=== PATIENT | female | born 1960 ===

== ENCOUNTER 2020-03-08 09:28 | Outpatient (REF) | payer OTHER, SELFPAY ==
[2020-03-08 11:45] LABS: Hematocrit 42.7 % (37-47); Hemoglobin 13.6 g/dl (12.0-16.0); Mean Corpuscular HGB Conc 31.9 g/dl (31.0-35.0); Mean Corpuscular Hemoglobin 29.8 pg (27.0-33.0); Mean Corpuscular Volume 93.6 fL (80-98); Mean Platelet Volume 10.4 fL (9.4-12.3); Platelet Count 524 X10*3/uL (160-400); Red Blood Count 4.56 X10*6/uL (4.20-5.50); Red Cell Distribution Width 13.6 % (11.0-16.0); White Blood Count 10.7 X10*3/uL (4.8-10.8)
[2020-03-08 11:55] LABS: Alanine Aminotransferase 34 U/L (0-31); Albumin Level 4.3 g/dL (3.5-5.0); Alkaline Phosphatase 108 U/L (39-117); Anion Gap 13 (12-20); Aspartate Amino Transferase 23 U/L (5-31); Bilirubin Total 0.5 mg/dL (0.0-1.0); Blood Urea Nitrogen 15 mg/dL (9-16); Calcium 9.1 mg/dL (8.4-10.2); Carbon Dioxide 24 mmol/L (22-29); Chloride 106 mmol/L (96-108); Cholesterol 276 mg/dL; Estimated Glomerular Filt Rate > 60; Glucose Fasting 91 mg/dL (60-99); HDL Cholesterol 46 mg/dL; LDL Cholesterol Calculated 184 mg/dl; Potassium 4.8 mmol/l (3.3-5.1); Sodium 138 mmol/L (135-145); Total Protein 7.1 g/dL (6.5-8.0); Triglycerides 233 mg/dL
[2020-03-08 12:19] LABS: Thyroid Stimulating Hormone 1.01 mIU/mL (0.32-4.0); Vitamin D 25-OH Total 21.6 ng/mL (>30)
[2020-03-08 13:02] LABS: Atypical Lymph Absolute Manual 0.2 x10*3/uL; Atypical Lymphs Percent Manual 2 % (0-6); Basophils Abs Manual 0.1 X10*3/uL (0.0-0.3); Basophils Percent Manual 1 % (0-1); Eosinophils Absolute Manual 0.1 X10*3/UL (0.0-0.8); Eosinophils Percent Manual 1 % (0-4); Lymphocytes Absolute Manual 6.2 X10*3/uL (0.6-4.8); Lymphocytes Percent Manual 58 % (20-40); Monocytes Absolute Manual 0.5 X10*3/uL (0.0-1.2); Monocytes Percent Manual 5 % (2-11); Neutrophils Percent Manual 33 % (45-73)
[2020-03-08 13:03] LABS: Platelet Estimate INCREASED (NORMAL); Platelet Morphology Comment NORMAL; RBC Morphology NORMAL; Smudge Cells PRESENT
[2020-03-08 15:02] LABS: Band Neutrophils Percent 0 % (3-5); Neutrophils Absolute Manual 3.5 X10*3/uL (2.2-7.9)
== END 2020-03-08 09:29 | disposition home or self-care (01) ==
LOC: HO.HMGCLDS 09:28
PROVIDERS: PCP Internal Medicine; Visit Provider Internal Medicine
DX: Z00.01 Encounter for general adult medical examination with abnormal findings (principal); E78.5 Hyperlipidemia, unspecified; N95.1 Menopausal and female climacteric states; E03.9 Hypothyroidism, unspecified; Z86.2 Personal history of diseases of the blood and blood-forming organs and certain disorders involving the immune mechanism
CPT/HCPCS: 36415; 80050; 80053; 80061; 82306; 84443; 85007; 85025; 85027

== ENCOUNTER 2022-07-17 08:46 | Outpatient (REF) | payer OTHER, SELFPAY ==
[2022-07-17 12:02] LABS: Basophils Absolute Auto 0.1 X10*3/uL (0.0-0.2); Basophils Percent Auto 0.9 % (0-2); Eosinophils Absolute Auto 0.3 X10*3/uL (0.0-0.4); Eosinophils Percent Auto 3.3 % (0-4); Hematocrit 44.8 % (37.0-47.0); Hemoglobin 14.1 g/dl (12.0-16.0); Imm Gran Abs Auto 0.02 X10*3/uL (0.00-0.03); Imm Gran Pct Auto 0.2 % (0.0-0.4); Lymphocytes Absolute Auto 5.6 X10*3/uL (1.2-4.9); Lymphocytes Percent Auto 53.9 % (20-40); MANUAL DIFF FLAG SCAN; Mean Corpuscular HGB Conc 31.5 g/dl (31.0-35.0); Mean Corpuscular Hemoglobin 29.4 pg (27.0-33.0); Mean Corpuscular Volume 93.3 fL (80.0-98.0); Mean Platelet Volume 10.2 fL (9.4-12.3); Monocytes Absolute Auto 0.6 X10*3/uL (0.1-1.2); Monocytes Percent Auto 5.4 % (2-11); Neutrophils Absolute Auto 3.8 x10*3/uL (2.0-8.3); Neutrophils Percent Auto 36.3 % (45-73); Platelet Count 528 X10*3/uL (160-400); Red Cell Distribution Width 13.6 % (11.0-16.0); SCAN SMEAR FLAG 1; White Blood Count 10.3 X10*3/uL (4.8-10.8)
[2022-07-17 12:32] LABS: SLIDE REVIEW VERIFIED
[2022-07-17 12:42] LABS: Alanine Aminotransferase 22 U/L (0-31); Anion Gap 13 (12-20); Aspartate Amino Transferase 23 U/L (5-31); Blood Urea Nitrogen 12 mg/dL (9-16); Calcium 9.7 mg/dL (8.4-10.2); Carbon Dioxide 26 mmol/L (22-29); Chloride 109 mmol/L (96-108); Cholesterol 287 mg/dL; Estimated Glomerular Filt Rate > 60; Glucose Fasting 91 mg/dL (60-99); HDL Cholesterol 51 mg/dL; LDL Cholesterol Calculated 191 mg/dl; Sodium 143 mmol/L (135-145); Triglycerides 227 mg/dL
[2022-07-17 12:53] LABS: Folate 12.5 ng/mL (> or = 4.0); Vitamin B12 593 pg/mL (200-900); Vitamin D 25-OH Total 28.6 ng/mL (>30)
== END 2022-07-17 08:47 | disposition home or self-care (01) ==
LOC: HO.HMGCLDS 08:46
PROVIDERS: PCP Internal Medicine; Visit Provider Internal Medicine
DX: Z00.01 Encounter for general adult medical examination with abnormal findings (principal); E55.9 Vitamin D deficiency, unspecified; E78.5 Hyperlipidemia, unspecified; Z78.0 Asymptomatic menopausal state; Z90.81 Acquired absence of spleen
CPT/HCPCS: 36415; 80048; 80061; 82306; 82607; 82746; 84450; 84460; 85025

== ENCOUNTER 2023-06-29 10:40 | Outpatient (AMB) | payer OTHER, SELFPAY ==
[2023-06-29 11:09] VITALS: BP 144/86; PULSE 90; O2SAT 96; BMI 31.6
--- NOTE | 2023-06-29 11:09 | A.OFFPC_ITS ---
Vital Signs 06/29/23 11:09 Height 5 ft 1 in Weight 167 lb BMI 31.6 BP 144/86 H Blood Pressure Location Rt brachial Position Sitting Pulse 90 Pulse Source Pulse Oximeter Pulse Oximetry (%) 96 Oxygen Delivery Method Room Air Intake Visit Reasons: Discuss Orthopedic Referral Intake Note: Pt is here today to discuss orthopedic referral for Lt knee pain: No injury noted Allergies No Known Allergies Allergy (Verified 06/29/23 11:23) Tobacco use date assessed: 06/29/23 Dental Screening Dental Screen Date: 06/29/23 Did you have a dental visit in the last 12 months?: Yes Did you have a dental problem in the last 6 months where you did not have access to dental care?: No Was dental information given to patient?: Patient has dentist HPI Discuss Orthopedic Referral HPI Details 63-year-old lady here today complaining of sudden onset of pain in anterior aspect of left knee joint, she was seen at urgent care clinic 06/10/2023 were x-ray of knee done showed presence of small left joint effusion fracture seen. Patient placed on 5 day course of prednisone 10 mg daily which she states only afforded temporary relief. She has been wearing a flexible knee brace which affords some improvement. Patient requesting a referral to be seen at [facility]. Patient states she already scheduled appointment for 07/12/2023 [facility] Medical History (Updated 06/29/23 @ 11:48 by Alyssa Sullivan MD) Mixed dyslipidemia Refused pneumococcal vaccination COVID-19 vaccination refused Vitamin D deficiency Refused influenza vaccine Nail deformity Hot flashes due to menopause Postmenopause Hx of idiopathic thrombocytopenic purpura Cyst of right breast with history of ectopic Normal colonoscopy Surgical History H/O splenectomy History of unilateral fallopian tube excision Family History Mother No problems noted. Brother Hyperlipemia Sister Diabetes Hyperlipemia Social History Housing: House Alcohol intake: never Patient Tobacco Use Status: Never used Tobacco e-Cigarette/Vaping Use: Never Used service: No Current occupational status: employed Cognitive needs: No Hearing needs: No Vision needs: Yes Questionnaire PHQ-9 Over the last 2 weeks, how often have you been bothered by any of the following problems? 1. Little interest or pleasure in doing things: not at all 2. Feeling down, depressed, or hopeless: not at all 3. Trouble falling or staying asleep, or sleeping too much: not at all 4. Feeling tired or having little energy: several days 5. Poor appetite or overeating: several days 6. Feeling bad about yourself - or that you are a failure or have let yourself or your family down: not at all 7. Trouble concentrating on things, such as reading the newspaper or watching television: not at all 8. Moving or speaking so slowly that other people could have noticed. Or the opposite - being so fidgety or restless that you have been moving around a lot more than usual: not at all 9. Thoughts that you would be better off or of hurting yourself in some way: not at all Total score: 2 Depression Screening Interpretation: Negative Depression Screening Done: Yes 22377 - PHQ-9 Billing: Yes Source: Developed by Drs. Blayne Pinto, Tara Mayorga, Tremayne Owen and colleagues, with an educational eleazar from [employer]. Thrive Questionnaire Date Thrive assessed: 06/29/23 I am a: Patient What is your living situation today?: I have a steady place to live Within the past 12 months, did the food you bought not last and you didn't have the money to get more?: Never true Within the past 12 months, did you worry whether your food would run out before you got money to buy more?: Never true Do you have trouble paying for medicines?: No Do you have trouble getting transportation to medical appointments?: No Do you have trouble paying your heating and electricity bill?: No Do you have trouble taking care of your child, family member or friend?: No Do you have trouble with day-to-day activities such as bathing, preparing meals, shopping, managing finances, etc.?: No Are you currently unemployed and looking for a job?: No Are you interested in more education?: No THRIVE Score: 0 AUDIT C Alcohol Use Questionnaire (AUDIT-C) 1. How often do you have a drink containing alcohol?: Monthly or less 2. How many drinks containing alcohol do you have on a typical day when you are drinking?: 1 or 2 3. How often do you have six or more drinks on one occasion?: Never Total Score: 1 MARTY-7 AMB Questionnaire MARTY-7 Date MARTY - 7 assessed: 06/29/23 Feeling nervous, anxious, or on edge: 0 = Not at all Not being able to stop or control worryin = Not at all Worrying too much about different things: 0 = Not at all Trouble relaxin = Not at all Being so restless that it is hard to sit still: 0 = Not at all Becoming easily annoyed or irritable: 0 = Not at all Feeling afraid as if something awful might happen: 0 = Not at all Total MARTY-7 score (0-4 normal; 5-9 mild; 10-14 moderate; 15-21 severe): 0 Source: Developed by Drs. Blayne Pinto, Tara Mayorga, Tremayne Owen and colleagues, with an educational eleazar from [employer]. MARTY-7 Assessment Billing MARTY-7 Assessment Tool: MARTY-7 Assessment 83150 Review of Systems Const All systems reviewed & are unremarkable except as noted in HPI and below Physical exam (Primary Care) Vital Signs: Last Vital Signs Pulse 90 06/29/23 11:09 BP 144/86 H 06/29/23 11:09 Pulse Ox 96 06/29/23 11:09 Oxygen Delivery Method Room Air 06/29/23 11:09 BMI result Body Mass Index 31.6 Tobacco/Smoking Status: Tobacco use Status Tobacco use date assessed 06/29/23 06/29/23 11:27 Patient Tobacco Use Status Never used Tobacco 06/29/23 11:10 e-Cigarette/Vaping Use Never Used 06/29/23 11:10 PHQ-9: PHQ-9 Score PHQ-9: Total score 2 06/29/23 11:53 Depression Screening Interpretation: Negative Thrive Assessment: Date of Thrive Assessment Date Thrive assessed 06/29/23 06/29/23 11:53 Const Other: Alert oriented x3, no acute distress noted ambulatory normal gait Orientation/consciousness: patient oriented x3 Resp Effort & Inspection: normal respiratory effort and able to speak in complete sentences Auscultation: clear to auscultation bilaterally Cardio Rate: regular rate Rhythm: regular rhythm Heart sounds: S1 normal heart sound present and S2 normal heart sound present Skin General skin exam: no rashes or lesions noted Neuro General: patient oriented x3, gait normal, moves all extremities and no focal motor deficits Extrem General: Yes full ROM and Yes no joint enlargement Left lower extremity: normal to inspection, full ROM and no joint enlargement Assessment and Plan Assessment & Plan (1) Left anterior knee pain: Code(s): M25.562 - Pain in left knee Plan: Needs referral to [facility], has appointment already scheduled for to 07/12/23 at 09:15 am (2) Refused pneumococcal vaccination: Code(s): Z28.21 - Immunization not carried out because of patient refusal (3) Mixed dyslipidemia: Code(s): E78.2 - Mixed hyperlipidemia Plan: Refusing to start any statin, reinforced importance of following a low- cholesterol diet and getting regular exercise. Repeat fasting lipid ordered (4) COVID-19 vaccination refused: Code(s): Z28.21 - Immunization not carried out because of patient refusal (5) Vitamin D deficiency: Code(s): E55.9 - Vitamin D deficiency, unspecified Plan: Check vitamin-D level Orders: Orders Vitamin D 25-OH Total 06/29/23 E55.9 - Vitamin D deficiency, unspecified, E78.2 - Mixed hyperlipidemia Alanine Aminotransferase 06/29/23 E55.9 - Vitamin D deficiency, unspecified, E78.2 - Mixed hyperlipidemia Lipid Panel 06/29/23 E55.9 - Vitamin D deficiency, unspecified, E78.2 - Mixed hyperlipidemia Basic Metabolic Panel Fasting 06/29/23 E55.9 - Vitamin D deficiency, unspecified, E78.2 - Mixed hyperlipidemia Aspartate Amino Transferase 06/29/23 E55.9 - Vitamin D deficiency, unspecified, E78.2 - Mixed hyperlipidemia Referrals Orthopedics Referral M25.562 - Pain in left knee Coding Level of Care Code Est Pt Level 3 (54633) Diagnoses Left anterior knee pain M25.562 Refused pneumococcal vaccination Z28.21 Mixed dyslipidemia E78.2 COVID-19 vaccination refused Z28.21 Vitamin D deficiency E55.9 Additional Codes MARTY-7 Assessment Billing - MARTY-7 Assessment Tool: MARTY-7 Assessment 27063 ([id number])
== END 2023-06-29 16:18 | disposition home or self-care (01) ==
PROVIDERS: PCP Internal Medicine; Visit Provider Internal Medicine
DX: M25.562 Pain in left knee (principal); Z28.21 Immunization not carried out because of patient refusal; E78.2 Mixed hyperlipidemia; E55.9 Vitamin D deficiency, unspecified
CPT/HCPCS: 99213

== ENCOUNTER 2023-07-16 06:40 | Outpatient (REF) | payer OTHER, SELFPAY ==
[2023-07-16 11:39] LABS: Alanine Aminotransferase 22 U/L (0-31); Anion Gap 12 (12-20); Aspartate Amino Transferase 22 U/L (5-31); Blood Urea Nitrogen 15 mg/dL (9-16); Calcium 9.1 mg/dL (8.4-10.2); Carbon Dioxide 23 mmol/L (22-29); Chloride 110 mmol/L (96-108); Cholesterol 280 mg/dL (<200); Estimated Glomerular Filt Rate > 60; Glucose Fasting 102 mg/dL (60-99); HDL Cholesterol 51 mg/dL (>40); LDL Cholesterol Calculated 196 mg/dL (<100); Potassium 4.2 mmol/L (3.3-5.1); Sodium 141 mmol/L (135-145); Triglycerides 166 mg/dL (<150)
[2023-07-16 12:01] LABS: Vitamin D 25-OH Total 49.7 ng/mL (>30)
== END 2023-07-16 06:41 | disposition home or self-care (01) ==
LOC: HO.HMGCLDS 06:40
PROVIDERS: PCP Internal Medicine; Visit Provider Internal Medicine
DX: E78.2 Mixed hyperlipidemia (principal); E55.9 Vitamin D deficiency, unspecified
CPT/HCPCS: 36415; 80048; 80061; 82306; 84450; 84460

== ENCOUNTER 2023-08-06 13:28 | Outpatient (AMB) | payer OTHER, SELFPAY ==
[2023-08-06 13:42] VITALS: BP 128/72; PULSE 92; O2SAT 98; BMI 31.3
--- NOTE | 2023-08-06 13:42 | MHC.PC.OV ---
Vital Signs 08/06/23 13:42 Height 5 ft 1 in Weight 165 lb 8 oz BMI 31.3 BP 128/72 Blood Pressure Location Rt brachial Position Sitting Pulse 92 Pulse Source Pulse Oximeter Pulse Oximetry (%) 98 Oxygen Delivery Method Room Air Intake Visit Reasons: Annual PE/OK Per Dr. Stevenson Intake Note: Pt is here today for her Annual Physical. Last Mammogram 09/01/2021 Cologuard done last year. Allergies No Known Allergies Allergy (Verified 08/06/23 13:50) Medication List - Last Reconciled 08/06/23 by Alyssa Sullivan MD cholecalciferol (vitamin D3) 125 mcg PO DAILY magnesium oxide 500 mg PO DAILY vitamin B complex (B Complex-Vitamin B12 tablet) 1 tab PO DAILY zinc acetate (Galzin) 50 mg PO DAILY Tobacco use date assessed: 08/06/23 Dental Screening Dental Screen Date: 08/06/23 Did you have a dental visit in the last 12 months?: Yes Did you have a dental problem in the last 6 months where you did not have access to dental care?: No Was dental information given to patient?: Patient has dentist HPI Annual PE/OK Per Dr. Stevenson HPI Details 63-year-old lady here today for physical exam. She is overdue for her mammogram, last done in 2021, but is up-to-date with her cervical cancer screening, sees Dr. Hicks at [facility]. Patient states that she had done already this year, copy of results unavailable to me at present time. She had her colon cancer screening done by Cologuard testing which came back negative, last year. She has mixed dyslipidemia , which she has been trying to control through diet and exercise. Recent fasting labs done however showed higher LDL cholesterol as well as triglycerides as compared to last check. Previously was on atorvastatin, but had to stop taking the medication as she developed severe muscle pain and weaknes, which resolved after discontinuation of the medication. She has history of ITP status post splenectomy. Patient however does not want to get any vaccinations, as she believes that she developed ITP after being given the wrong vaccine when she was a child peer [facility] Medical History Mixed dyslipidemia Refused pneumococcal vaccination COVID-19 vaccination refused Vitamin D deficiency Refused influenza vaccine Nail deformity Hot flashes due to menopause Postmenopause Hx of idiopathic thrombocytopenic purpura Cyst of right breast with history of ectopic Normal colonoscopy Surgical History H/O splenectomy History of unilateral fallopian tube excision Family History Mother No problems noted. Brother Hyperlipemia Sister Diabetes Hyperlipemia Social History Housing: House Alcohol intake: never Patient Tobacco Use Status: Never used Tobacco e-Cigarette/Vaping Use: Never Used service: No Current occupational status: employed Cognitive needs: No Hearing needs: No Vision needs: Yes Questionnaire PHQ-9 Over the last 2 weeks, how often have you been bothered by any of the following problems? 1. Little interest or pleasure in doing things: not at all 2. Feeling down, depressed, or hopeless: not at all 3. Trouble falling or staying asleep, or sleeping too much: several days 4. Feeling tired or having little energy: several days 5. Poor appetite or overeating: not at all 6. Feeling bad about yourself - or that you are a failure or have let yourself or your family down: not at all 7. Trouble concentrating on things, such as reading the newspaper or watching television: not at all 8. Moving or speaking so slowly that other people could have noticed. Or the opposite - being so fidgety or restless that you have been moving around a lot more than usual: not at all 9. Thoughts that you would be better off or of hurting yourself in some way: not at all Total score: 2 Depression Screening Interpretation: Negative Depression Screening Done: Yes 97748 - PHQ-9 Billing: Yes Source: Developed by Drs. Blayne Pinto, Tara Mayorga, Tremayne Owen and colleagues, with an educational eleazar from [employer]. Thrive Questionnaire Date Thrive assessed: 08/06/23 I am a: Patient What is your living situation today?: I have a steady place to live Within the past 12 months, did the food you bought not last and you didn't have the money to get more?: Sometimes True Within the past 12 months, did you worry whether your food would run out before you got money to buy more?: Sometimes True Do you have trouble paying for medicines?: No Do you have trouble getting transportation to medical appointments?: No Do you have trouble paying your heating and electricity bill?: No Do you have trouble taking care of your child, family member or friend?: No Do you have trouble with day-to-day activities such as bathing, preparing meals, shopping, managing finances, etc.?: No Are you currently unemployed and looking for a job?: No Are you interested in more education?: No Please select the resources that you would like help with: None Currently or been in a relationship where the following occur: no concerns reported THRIVE Score: 2 AUDIT C Alcohol Use Questionnaire (AUDIT-C) 1. How often do you have a drink containing alcohol?: Never 3. How often do you have six or more drinks on one occasion?: Never Total Score: 0 Score Reviewed/Action Taken: Yes MARTY-7 AMB Questionnaire MARTY-7 Date MARTY - 7 assessed: 08/06/23 Feeling nervous, anxious, or on edge: 0 = Not at all Not being able to stop or control worryin = Not at all Worrying too much about different things: 0 = Not at all Trouble relaxin = Not at all Being so restless that it is hard to sit still: 0 = Not at all Becoming easily annoyed or irritable: 0 = Not at all Feeling afraid as if something awful might happen: 0 = Not at all Total MARTY-7 score (0-4 normal; 5-9 mild; 10-14 moderate; 15-21 severe): 0 Source: Developed by Drs. Blayne Pinto, Tara Mayorga, Tremayne Owen and colleagues, with an educational eleazar from [employer]. MARTY-7 Assessment Billing MARTY-7 Assessment Tool: MARTY-7 Assessment 92826 Review of Systems Const Denies fatigue, Denies fever(s), Denies headache(s) and Denies weakness Eyes Details: sees [facility] Denies change in vision and Denies eye discharge ENT Denies dizziness, Denies headache(s), Denies epistaxis, Denies nasal congestion and Denies sore throat Card Denies chest pain, Denies lightheadedness, Denies palpitations and Denies dyspnea Resp Denies chest congestion, Denies cough, Denies dyspnea and Denies wheezing GI Denies abdominal pain, Denies melena, Denies bloating, Denies change in bowel habits, Denies dyspepsia, Denies heartburn and Denies nausea Denies hematuria, Denies urinary frequency, Denies difficulty voiding, Reports hot flashes (occasional), Denies nipple discharge, Denies dysuria and Denies urinary incontinence Musc Reports stiffness Skin/Breast Denies breast swelling, Denies breast pain, Denies breast mass, Denies lesions, Denies nipple discharge and Denies rash Neuro Denies dizziness, Denies headache(s) and Denies weakness Psych Reports no additional complaints Endo Denies fatigue, Denies polydipsia, Denies polyuria and Denies palpitations Keith/Lymph Denies easy bleeding and Denies easy bruising Aller/Immun Denies seasonal rhinorrhea and Denies wheezing Physical exam (Primary Care) Vital Signs: Last Vital Signs Pulse 92 08/06/23 13:42 BP 128/72 08/06/23 13:42 Pulse Ox 98 08/06/23 13:42 Oxygen Delivery Method Room Air 08/06/23 13:42 BMI result Body Mass Index 31.3 Tobacco/Smoking Status: Tobacco use Status Tobacco use date assessed 08/06/23 08/06/23 13:43 Patient Tobacco Use Status Never used Tobacco 08/06/23 13:43 e-Cigarette/Vaping Use Never Used 08/06/23 13:43 PHQ-9: PHQ-9 Score PHQ-9: Total score 2 08/06/23 14:03 Depression Screening Interpretation: Negative Thrive Assessment: Date of Thrive Assessment Date Thrive assessed 08/06/23 08/06/23 13:48 Currently or been in a relationship where the following occur: no concerns reported Const Other: Alert oriented x3, no acute distress noted ambulatory normal gait Orientation/consciousness: patient oriented x3 [facility] Head: Yes normocephalic Ears: external ears normal, TM's normal bilaterally and EAC's normal General nose exam: Normal external nose present and No nasal discharge present Face and sinus: Yes face symmetric Mouth: Normal oral and palatal mucosa present, oropharynx normal and moist mucous membranes Eyes General: appearance normal, both eyes and all related structures Neck Neck: Yes full ROM, Yes no lymphadenopathy and Yes supple Chest Breast/axilla palpation: normal palpation of the breasts Resp Effort & Inspection: normal respiratory effort and able to speak in complete sentences Auscultation: clear to auscultation bilaterally Cardio Rate: regular rate Rhythm: regular rhythm Heart sounds: S1 normal heart sound present and S2 normal heart sound present GI Palpation (GI): Soft to palpation, nontender, no guarding and no masses Auscultation: normal bowel sounds General: Yes no CVA tenderness and Yes deferred (Currently sees Dr. Hicks for her routine Pap and pelvic exam) Back/Spine/Pelvis Back: no CVA tenderness and No back tenderness Skin General skin exam: no rashes or lesions noted Neuro General: patient oriented x3, gait normal, moves all extremities and no focal motor deficits Extrem General: Yes full ROM and Yes no joint enlargement Left lower extremity: normal to inspection, full ROM and no joint enlargement Psych Appearance: grossly normal and well kempt Mental Status: mental status grossly normal Affect: normal affect Attitude: cooperative Thought process: Normal thought process present Results Reviewed Results Reviewed: Name: Francoise Burdick Age/Sex: 63/F : 1960 Unit#: [id number] Attend Dr: Alyssa Sullivan MD Re07/16/23 Status: DEP REF Location: [facility] Disch: SPEC : [id number] ROSA: 07/16/23 STATUS: COMP REQ : [id number] RECD: 07/16/23-[address]: Alyssa Sullivan MD COMP: 07/16/23 ENTERED: 07/16/[address]: ORDERED: Met Prof Fast, AST, ALT, Lipid Panel, Vitamin D 25-OH Test Result Flag Reference Sodium 141 135-145 mmol/L Potassium 4.2 3.3-5.1 mmol/L CL 110 H 96-108 mmol/L CO2 23 22-29 mmol/L Gap 12 12-20 BUN 15 9-16 mg/dL Creat 0.67 0.5-1.4 mg/dL EGFR > 60 NOTE: For -Dominican individuals, multiply the result by 1.210. Chronic Kidney Disease: Estimated GFR < 60 mL/min/1.73m2 Severe Kidney Disease: Estimated GFR < 15 mL/min/1.73m2 FBS 102 H 60-99 mg/dL A fasting glucose from 100-125 mg/dl is considered impaired (pre-diabetes). CA 9.1 # 8.4-10.2 mg/dL AST (GOT) 22 5-31 U/L ALT (GPT) 22 0-31 U/L Triglyceride 166 H <150 mg/dL Desirable Triglyceride: less than 150 mg/dL Borderline High Triglyceride 150-199 mg/dL High Triglyceride: 200-499 mg/dL Very High Triglyceride: greater than or equal to 5OO mg/dL Cholesterol 280 H <200 mg/dL Desirable Cholesterol: less than 200 mg/dL Borderline High Cholesterol: 200-239 mg/dL High Cholesterol: greater than 239 mg/dL LDL Calculated 196 H <100 mg/dL Desirable LDL: less than 100 mg/dL Near Optimal/Above Optimal LDL: 110-129 mg/dL Borderline High LDL: 130-159 mg/dL High LDL: 160-189 mg/dL Very High LDL: greater than or equal to 190 mg/dL HDL 51 >40 mg/dL Desirable HDL: greater than 40 mg/dL Note: This HDL assay may give artificially low results in patients with liver disease. Vit D 25-OH Tot 49.7 >30 ng/mL Health Based Reference Values* < 20 ng/mL Deficient 20-30 ng/mL Insufficient > 30 ng/mL Sufficient Assessment and Plan Assessment & Plan (1) Annual visit for general adult medical examination with abnormal findings: Code(s): Z00.01 - Encounter for general adult medical examination with abnormal findings Plan: Recent fasting lab results reviewed with patient.. Recommended dental visit every 6 months and regular eye exams, at least every 2 years, goes to [facility]. Take adequate calcium in diet and vitamin-D 3 at 2000 IU per cap once a day, in addition to weight-bearing exercises to help maintain good muscle tone and weight control. Instructed to do self-breast exam, and advised to get yearly mammogram, patient advised to request for breast padding if the procedure is too painful for her. . She is up-to-date with her colon cancer screening, had negative Cologuard testing last year, (2) Mixed dyslipidemia: Code(s): E78.2 - Mixed hyperlipidemia Plan: Reviewed recent fasting lab results with patient which showed marked elevation in her LDL cholesterol and high triglycerides. Will start on rosuvastatin 5 mg per tablet to take once a day, and added Co Q10 50 mg /capsule , taken together. Reinforced importance of following a low-cholesterol diet and getting regular exercise. Ordered another lipid panel in 3 months (3) Postmenopause: Code(s): Z78.0 - Asymptomatic menopausal state Plan: Discussed also importance of taking vitamin-D 3 supplements at least 2000 units daily and together with dietary calcium and regular weight-bearing exercise. (4) Refused influenza vaccine: Code(s): Z28.21 - Immunization not carried out because of patient refusal Plan: Declined getting any immunizations (5) 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 in [place] Code(s): Z90.81 - Acquired absence of spleen Plan: Discussed with patient importance of getting vaccinated specially for Streptococcus pneumoniae but patient again declined. (6) COVID-19 vaccination refused: Code(s): Z28.21 - Immunization not carried out because of patient refusal (7) Refused pneumococcal vaccination: Code(s): Z28.21 - Immunization not carried out because of patient refusal Orders: Orders Creatine Kinase Total 3 Months E78.2 - Mixed hyperlipidemia Aspartate Amino Transferase 3 Months E78.2 - Mixed hyperlipidemia Alanine Aminotransferase 3 Months E78.2 - Mixed hyperlipidemia Lipid Panel 3 Months E78.2 - Mixed hyperlipidemia Medications: New rosuvastatin 5 mg PO DAILY 30 tabs 5RF Coding Level of Care Code Est Pt Prev Care 40-64y(81885) Diagnoses Annual visit for general adult medical examination with abnormal findings Z00.01 Mixed dyslipidemia E78.2 Postmenopause Z78.0 Refused influenza vaccine Z28.21 H/O splenectomy Z90.81 COVID-19 vaccination refused Z28.21 Refused pneumococcal vaccination Z28.21 Additional Codes MARTY-7 Assessment Billing - MARTY-7 Assessment Tool: MARTY-7 Assessment [id number] ([id number])
== END 2023-08-06 14:12 | disposition home or self-care (01) ==
LOC: HO.HMGC 13:29
PROVIDERS: PCP Internal Medicine; Visit Provider Internal Medicine
DX: Z00.01 Encounter for general adult medical examination with abnormal findings (principal); E78.2 Mixed hyperlipidemia; Z78.0 Asymptomatic menopausal state; Z28.21 Immunization not carried out because of patient refusal; Z90.81 Acquired absence of spleen
CPT/HCPCS: 99213; 99396

== ENCOUNTER 2023-11-01 07:31 | Outpatient (REF) | payer OTHER, SELFPAY ==
[2023-11-01 10:54] LABS: Alanine Aminotransferase 20 U/L (0-31); Aspartate Amino Transferase 21 U/L (5-31); Cholesterol 195 mg/dL (<200); HDL Cholesterol 49 mg/dL (>40); LDL Cholesterol Calculated 113 mg/dL (<100); Triglycerides 169 mg/dL (<150)
== END 2023-11-01 07:32 | disposition home or self-care (01) ==
LOC: HO.HMGCLDS 07:31
PROVIDERS: PCP Internal Medicine; Visit Provider Internal Medicine
DX: E78.2 Mixed hyperlipidemia (principal)
CPT/HCPCS: 36415; 80061; 82550; 84450; 84460

== ENCOUNTER 2023-11-09 13:05 | Outpatient (AMB) | payer OTHER, SELFPAY ==
[2023-11-09 13:29] VITALS: BP 130/78; PULSE 88; O2SAT 97; BMI 31.6
--- NOTE | 2023-11-09 13:29 | A.OFFPC_ITS ---
Vital Signs 11/09/23 13:29 Height 5 ft 1 in Weight 167 lb BMI 31.6 BP 130/78 Blood Pressure Location Lt brachial Position Sitting Pulse 88 Pulse Source Pulse Oximeter Pulse Oximetry (%) 97 Oxygen Delivery Method Room Air Intake Visit Reasons: 3 month follow up Intake Note: Pt is here today for 3 months follow up visit on labs. Pt states that she has been having pain and lump in her L upper leg. Allergies No Known Allergies Allergy (Verified 11/09/23 13:56) Medication List - Last Reconciled 11/09/23 by Alyssa Sullivan MD cholecalciferol (vitamin D3) 125 mcg PO DAILY magnesium oxide 500 mg PO DAILY rosuvastatin 5 mg PO DAILY vitamin B complex (B Complex-Vitamin B12 tablet) 1 tab PO DAILY zinc acetate (Galzin) 50 mg PO DAILY Tobacco use date assessed: 11/09/23 Dental Screening Dental Screen Date: 08/06/23 HPI 3 month follow up HPI Details 63-year-old lady here today for follow-u p on her hyperlipidemia. Currently on rosuvastatin 5 mg daily with latest fasting lipids now within normal limits except for higher triglyceride levels but lower than last check her total CK and liver enzymes are within normal limits. Has been tolerating medication well and has been combining this with adherence to low-cholesterol diet and regular exercise. She also has a nodular lump on her left anterior thigh just above the knee which she has been noticing now for the last several days, hurts when she touches it and hurts when she is standing on her feet for long time. No history of any trauma. [facility] Medical History Thrombocytosis Mixed dyslipidemia Refused pneumococcal vaccination COVID-19 vaccination refused Vitamin D deficiency Refused influenza vaccine Nail deformity Hot flashes due to menopause Postmenopause Hx of idiopathic thrombocytopenic purpura Cyst of right breast with history of ectopic Normal colonoscopy Surgical History H/O splenectomy History of unilateral fallopian tube excision Family History Mother No problems noted. Brother Hyperlipemia Sister Diabetes Hyperlipemia Social History Housing: House Alcohol intake: never Patient Tobacco Use Status: Never used Tobacco e-Cigarette/Vaping Use: Never Used service: No Current occupational status: employed Cognitive needs: No Hearing needs: No Vision needs: Yes Questionnaire Thrive Questionnaire Date Thrive assessed: 08/06/23 MARTY-7 AMB Questionnaire MARTY-7 Date MARTY - 7 assessed: 08/06/23 Source: Developed by Drs. Blayne Pinto, Tara Mayorga, Tremayne Owen and colleagues, with an educational eleazar from [employer]. Review of Systems Const Denies fatigue and Denies weakness Eyes Details: sees [facility] Denies change in vision Card Denies chest pain, Denies lightheadedness, Denies palpitations and Denies dyspnea Resp Denies chest congestion, Denies cough, Denies dyspnea and Denies wheezing GI Denies abdominal pain, Denies melena, Denies bloating, Denies change in bowel habits, Denies dyspepsia, Denies heartburn and Denies nausea Denies hematuria, Denies urinary frequency and Denies dysuria Musc Reports stiffness Skin/Breast Denies rash Neuro Denies weakness Endo Denies fatigue, Denies polydipsia, Denies polyuria and Denies palpitations Keith/Lymph Denies easy bleeding and Denies easy bruising Aller/Immun Denies seasonal rhinorrhea and Denies wheezing Physical exam (Primary Care) Vital Signs: Last Vital Signs Pulse 88 11/09/23 13:29 BP 130/78 11/09/23 13:29 Pulse Ox 97 11/09/23 13:29 Oxygen Delivery Method Room Air 11/09/23 13:29 BMI result Body Mass Index 31.6 Tobacco/Smoking Status: Tobacco use Status Tobacco use date assessed 11/09/23 11/09/23 13:38 Patient Tobacco Use Status Never used Tobacco 11/09/23 13:29 e-Cigarette/Vaping Use Never Used 11/09/23 13:29 Thrive Assessment: Date of Thrive Assessment Date Thrive assessed 08/06/23 11/09/23 13:29 Const Other: Alert oriented x3, no acute distress noted ambulatory normal gait Orientation/consciousness: patient oriented x3 HENMT Ears: external ears normal General nose exam: Normal external nose present Face and sinus: Yes face symmetric Mouth: moist mucous membranes Eyes General: appearance normal, both eyes and all related structures Neck Neck: Yes full ROM, Yes no lymphadenopathy and Yes supple Resp Effort & Inspection: normal respiratory effort and able to speak in complete sentences Auscultation: clear to auscultation bilaterally Cardio Rate: regular rate Rhythm: regular rhythm Heart sounds: S1 normal heart sound present and S2 normal heart sound present GI Palpation (GI): Soft to palpation, nontender, no guarding and no masses Auscultation: normal bowel sounds Skin Other: Nodular mass slightly tender to palpation measuring approximately 1 x 1 see on anterior aspect of left thigh just above the, with normal overlying skin Neuro General: patient oriented x3, gait normal, moves all extremities and no focal motor deficits Extrem General: Yes full ROM and Yes no joint enlargement Left lower extremity: normal to inspection, full ROM and no joint enlargement Results Reviewed Results Reviewed: demetrice: GennaroFrancoise E Age/Sex: 63/F : 1960 Unit#: [id number] Attend Dr: Alyssa Sullivan MD Re11/01/23 Status: DEP [facility] Disch: SPEC : [id number] ROSA: 11/01/23-734 STATUS: COMP REQ : [id number] RECD: 11/01/23-[address]: Alyssa Sullivan MD COMP: 11/01/23-4 ENTERED: 11/01/23-[address]: ORDERED: AST, ALT, CK Total, Lipid Panel Test Result Flag Reference AST (GOT) 21 5-31 U/L ALT (GPT) 20 0-31 U/L CK Total 74 26-140 U/L Triglyceride 169 H <150 mg/dL Desirable Triglyceride: less than 150 mg/dL Borderline High Triglyceride 150-199 mg/dL High Triglyceride: 200-499 mg/dL Very High Triglyceride: greater than or equal to 5OO mg/dL Cholesterol 195 <200 mg/dL Desirable Cholesterol: less than 200 mg/dL Borderline High Cholesterol: 200-239 mg/dL High Cholesterol: greater than 239 mg/dL LDL Calculated 113 H <100 mg/dL Desirable LDL: less than 100 mg/dL Near Optimal/Above Optimal LDL: 110-129 mg/dL Borderline High LDL: 130-159 mg/dL High LDL: 160-189 mg/dL Very High LDL: greater than or equal to 190 mg/dL HDL 49 >40 mg/dL Desirable HDL: greater than 40 mg/dL Note: This HDL assay may give artificially low results in patients with liver disease. 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 Continue with rosuvastatin 5 mg daily , in addition to adherence to low- cholesterol diet and regular exercise, at least 30 minutes 3 to 4 times a week. Advised patient to make healthy food choices, eat more fruits, vegetables, whole grains, wild caught fish and low-fat dairy. Limit amount of meat and fried or fatty food products, as well as processed foods and fast foods. Follow-up scheduled with repeat fasting lipid panel in 5 months. (3) Nodular lesion on surface of skin: Code(s): L98.9 - Disorder of the skin and subcutaneous tissue, unspecified Plan: Likely fibroma, advised to try massaging diclofenac gel over affected area to 2 3 times a day as needed, and if no resolution of pain or mass gets bigger, will refer to general surgery for excision and biopsy Orders: Orders Lipid Panel 03/31/24 D75.839 - Thrombocytosis, unspecified, E78.2 - Mixed hyperlipidemia, Z78.0 - Asymptomatic menopausal state, Z90.81 - Acquired absence of spleen Alanine Aminotransferase 03/31/24 D75.839 - Thrombocytosis, unspecified, E78.2 - Mixed hyperlipidemia, Z78.0 - Asymptomatic menopausal state, Z90.81 - Acquired absence of spleen Complete Blood Count Auto Diff 03/31/24 D75.839 - Thrombocytosis, unspecified, E78.2 - Mixed hyperlipidemia, Z78.0 - Asymptomatic menopausal state, Z90.81 - Acquired absence of spleen Aspartate Amino Transferase 03/31/24 D75.839 - Thrombocytosis, unspecified, E78.2 - Mixed hyperlipidemia, Z78.0 - Asymptomatic menopausal state, Z90.81 - Acquired absence of spleen Vitamin D 25-OH Total 03/31/24 D75.839 - Thrombocytosis, unspecified, E78.2 - Mixed hyperlipidemia, Z78.0 - Asymptomatic menopausal state, Z90.81 - Acquired absence of spleen Coding Level of Care Code Est Pt Level 4 (44548) Diagnoses H/O splenectomy Z90.81 Mixed dyslipidemia E78.2 Nodular lesion on surface of skin L98.9
== END 2023-11-09 14:11 | disposition home or self-care (01) ==
PROVIDERS: PCP Internal Medicine; Visit Provider Internal Medicine
DX: Z90.81 Acquired absence of spleen (principal); E78.2 Mixed hyperlipidemia; L98.9 Disorder of the skin and subcutaneous tissue, unspecified
CPT/HCPCS: 99214

== ENCOUNTER 2024-04-05 07:37 | Outpatient (REF) | payer OTHER, SELFPAY ==
[2024-04-05 10:16] LABS: Basophils Absolute Auto 0.1 X10*3/uL (0.0-0.2); Basophils Percent Auto 0.7 % (0-2); Eosinophils Absolute Auto 0.3 X10*3/uL (0.0-0.4); Eosinophils Percent Auto 2.4 % (0-4); Hematocrit 43.2 % (37.0-47.0); Hemoglobin 14.1 g/dl (12.0-16.0); Imm Gran Abs Auto 0.09 X10*3/uL (0.00-0.03); Imm Gran Pct Auto 0.7 % (0.0-0.4); Lymphocytes Percent Auto 49.5 % (20-40); MANUAL DIFF FLAG SCAN; Mean Corpuscular HGB Conc 32.6 g/dl (31.0-35.0); Mean Corpuscular Hemoglobin 29.9 pg (27.0-33.0); Mean Corpuscular Volume 91.5 fL (80.0-98.0); Mean Platelet Volume 9.9 fL (9.4-12.3); Monocytes Absolute Auto 0.6 X10*3/uL (0.1-1.2); Monocytes Percent Auto 4.7 % (2-11); Neutrophils Absolute Auto 5.2 x10*3/uL (2.0-8.3); Platelet Count 518 X10*3/uL (160-400); Red Blood Count 4.72 X10*6/uL (4.20-5.50); Red Cell Distribution Width 13.9 % (11.0-16.0); SCAN SMEAR FLAG 1; White Blood Count 12.3 X10*3/uL (4.8-10.8)
[2024-04-05 10:17] LABS: Lymphocytes Absolute Auto 6.1 X10*3/uL (1.2-4.9)
[2024-04-05 10:35] LABS: Alanine Aminotransferase 35 U/L (0-31); Aspartate Amino Transferase 32 U/L (5-31); Cholesterol 305 mg/dL (<200); HDL Cholesterol 51 mg/dL (>40); LDL Cholesterol Calculated 198 mg/dL (<100); Triglycerides 284 mg/dL (<150)
[2024-04-05 10:51] LABS: SLIDE REVIEW VERIFIED
[2024-04-05 10:52] LABS: Vitamin D 25-OH Total 127.3 ng/mL (>30)
== END 2024-04-05 07:38 | disposition home or self-care (01) ==
LOC: HO.HMGCLDS 07:37
PROVIDERS: PCP Internal Medicine; Visit Provider Internal Medicine
DX: E78.2 Mixed hyperlipidemia (principal); Z90.81 Acquired absence of spleen; Z78.0 Asymptomatic menopausal state; D75.839 Thrombocytosis, unspecified
CPT/HCPCS: 36415; 80061; 82306; 84450; 84460; 85025

== ENCOUNTER 2024-04-13 13:28 | Outpatient (AMB) | payer OTHER, SELFPAY ==
--- NOTE | 2024-04-13 13:33 | MHC.PC.OV ---
Vital Signs 04/13/24 13:38 Height 5 ft 1 in Weight 164 lb BMI 31.0 BP 136/70 Blood Pressure Location Rt brachial Position Sitting Pulse 90 Pulse Source Pulse Oximeter Pulse Oximetry (%) 95 Oxygen Delivery Method Room Air Intake Visit Reasons: 5 month follow up Lipids and labs Intake Note: Pt is here todat for her 5mo. f/u labs Allergies No Known Allergies Allergy (Verified 04/13/24 13:46) Medication List - Last Reconciled 04/13/24 by Alyssa Sullivan MD ashwagandha extract mg PO magnesium glycinate mg PO niacin 250 mg PO DAILY rosuvastatin 5 mg PO DAILY vitamin D3-vitamin K2 125 mcg (5,000 unit)-100 mcg caps PO zinc acetate (Galzin) 50 mg PO DAILY Tobacco use date assessed: 04/13/24 Dental Screening Dental Screen Date: 04/13/24 Did you have a dental visit in the last 12 months?: Yes Did you have a dental problem in the last 6 months where you did not have access to dental care?: No Was dental information given to patient?: Patient has dentist HPI 5 month follow up Lipids and labs HPI Details 64 year-old lady here today for follow-up on her hyperlipidemia. Currently on rosuvastatin 5 mg daily PFSH Medical History Thrombocytosis Mixed dyslipidemia Refused pneumococcal vaccination COVID-19 vaccination refused Vitamin D deficiency Refused influenza vaccine Nail deformity Hot flashes due to menopause Postmenopause Hx of idiopathic thrombocytopenic purpura Cyst of right breast with history of ectopic Normal colonoscopy Surgical History H/O splenectomy History of unilateral fallopian tube excision Family History Mother No problems noted. Brother Hyperlipemia Sister Diabetes Hyperlipemia Social History Housing: House Alcohol intake: never Patient Tobacco Use Status: Never used Tobacco e-Cigarette/Vaping Use: Never Used service: No Current occupational status: employed Cognitive needs: No Hearing needs: No Vision needs: Yes Questionnaire PHQ-9 Over the last 2 weeks, how often have you been bothered by any of the following problems? 1. Little interest or pleasure in doing things: not at all 2. Feeling down, depressed, or hopeless: not at all 3. Trouble falling or staying asleep, or sleeping too much: not at all 4. Feeling tired or having little energy: not at all 5. Poor appetite or overeating: not at all 6. Feeling bad about yourself - or that you are a failure or have let yourself or your family down: not at all 7. Trouble concentrating on things, such as reading the newspaper or watching television: not at all 8. Moving or speaking so slowly that other people could have noticed. Or the opposite - being so fidgety or restless that you have been moving around a lot more than usual: not at all 9. Thoughts that you would be better off or of hurting yourself in some way: not at all Total score: 0 Depression Screening Interpretation: Negative Depression Screening Done: Yes 19624 - PHQ-9 Billing: Yes Source: Developed by Drs. Blayne Pinto, Tara Mayorga, Tremayne Owen and colleagues, with an educational eleazar from [employer]. Thrive Questionnaire Date Thrive assessed: 04/13/24 I am a: Patient What is your living situation today?: I have a steady place to live Within the past 12 months, did the food you bought not last and you didn't have the money to get more?: Sometimes True Within the past 12 months, did you worry whether your food would run out before you got money to buy more?: Sometimes True Do you have trouble paying for medicines?: No Do you have trouble getting transportation to medical appointments?: No Do you have trouble paying your heating and electricity bill?: No Do you have trouble taking care of your child, family member or friend?: No Do you have trouble with day-to-day activities such as bathing, preparing meals, shopping, managing finances, etc.?: No Are you currently unemployed and looking for a job?: No Are you interested in more education?: No Please select the resources that you would like help with: None Currently or been in a relationship where the following occur: No concerns reported THRIVE Score: 2 AUDIT C Alcohol Use Questionnaire (AUDIT-C) 1. How often do you have a drink containing alcohol?: Never Total Score: 0 MARTY-7 AMB Questionnaire MARTY-7 Date MARTY - 7 assessed: 04/13/24 Feeling nervous, anxious, or on edge: 0 = Not at all Not being able to stop or control worryin = Not at all Worrying too much about different things: 0 = Not at all Trouble relaxin = Not at all Being so restless that it is hard to sit still: 0 = Not at all Becoming easily annoyed or irritable: 0 = Not at all Feeling afraid as if something awful might happen: 0 = Not at all Total MARTY-7 score (0-4 normal; 5-9 mild; 10-14 moderate; 15-21 severe): 0 Source: Developed by Drs. Blayne Pinto, Tara Mayorga, Tremayne Owen and colleagues, with an educational eleazar from [employer]. MARTY-7 Assessment Billing MARTY-7 Assessment Tool: MARTY-7 Assessment 27710 Review of Systems Const Denies fatigue and Denies weakness Eyes Details: sees [facility] Denies change in vision Card Denies chest pain, Denies lightheadedness, Denies palpitations and Denies dyspnea Resp Denies chest congestion, Denies cough, Denies dyspnea and Denies wheezing GI Denies abdominal pain, Denies melena, Denies bloating, Denies change in bowel habits, Denies dyspepsia, Denies heartburn and Denies nausea Denies hematuria, Denies urinary frequency and Denies dysuria Musc Reports stiffness Skin/Breast Denies rash Neuro Denies weakness Endo Denies fatigue, Denies polydipsia, Denies polyuria and Denies palpitations Keith/Lymph Denies easy bleeding and Denies easy bruising Aller/Immun Denies seasonal rhinorrhea and Denies wheezing Physical exam (Primary Care) Vital Signs: Last Vital Signs Pulse 90 04/13/24 13:38 BP 136/70 04/13/24 13:38 Pulse Ox 95 04/13/24 13:38 Oxygen Delivery Method Room Air 04/13/24 13:38 BMI result Body Mass Index 31.0 Tobacco/Smoking Status: Tobacco use Status Tobacco use date assessed 04/13/24 04/13/24 13:42 Patient Tobacco Use Status Never used Tobacco 04/13/24 13:42 e-Cigarette/Vaping Use Never Used 04/13/24 13:42 PHQ-9: PHQ-9 Score PHQ-9: Total score 0 04/13/24 23:45 Depression Screening Interpretation: Negative Thrive Assessment: Date of Thrive Assessment Date Thrive assessed 04/13/24 04/13/24 13:42 Currently or been in a relationship where the following occur: No concerns reported Const Other: Alert oriented x3, no acute distress noted ambulatory normal gait Orientation/consciousness: patient oriented x3 HENMT Ears: external ears normal General nose exam: Normal external nose present Face and sinus: Yes face symmetric Mouth: moist mucous membranes Eyes General: appearance normal, both eyes and all related structures Neck Neck: Yes full ROM, Yes no lymphadenopathy and Yes supple Resp Effort & Inspection: normal respiratory effort and able to speak in complete sentences Auscultation: clear to auscultation bilaterally Cardio Rate: regular rate Rhythm: regular rhythm Heart sounds: S1 normal heart sound present and S2 normal heart sound present GI Palpation (GI): Soft to palpation, nontender, no guarding and no masses Auscultation: normal bowel sounds Neuro General: patient oriented x3, gait normal, moves all extremities and no focal motor deficits Extrem General: Yes full ROM and Yes no joint enlargement Left lower extremity: normal to inspection, full ROM and no joint enlargement Results Reviewed Results Reviewed: Name: Francoise Burdick Age/Sex: 64/F : 1960 Unit#: [id number] Attend Dr: Alyssa Sullivan MD Re04/05/24 Status: DEP REF Location: [facility] Disch: SPEC : [id number] ROSA: 04/05/24 STATUS: COMP REQ : [id number] RECD: 04/05/[address]: Alyssa Sullivan MD COMP: 04/05/24 ENTERED: 04/05/[address]: ORDERED: CBC Auto Diff, SLIDE REVIEW Test Result Flag Reference WBC 12.3 H 4.8-10.8 X10*3/uL RBC 4.72 4.20-5.50 X10*6/uL HGB 14.1 12.0-16.0 g/dl HCT 43.2 37.0-47.0 % MCV 91.5 80.0-98.0 fL MCH 29.9 27.0-33.0 pg MCHC 32.6 31.0-35.0 g/dl RDW 13.9 11.0-16.0 % PLT 518 H 160-400 X10*3/uL MPV 9.9 9.4-12.3 fL Neut Pct Auto 42.0 L 45-73 % ImGran Pct Auto 0.7 H 0.0-0.4 % Lymp Pct Auto 49.5 H 20-40 % Hale Pct Auto 4.7 2-11 % Eos Pct Auto 2.4 0-4 % Baso Pct Auto 0.7 0-2 % NRBC Pct Auto 0.0 0.0-0.2 /100WBC ANC Neut Abs # 5.2 2.0-8.3 x10*3/uL ImGran Abs Auto 0.09 H 0.00-0.03 X10*3/uL Lymph Abs Auto 6.1 H 1.2-4.9 X10*3/uL Hale Abs Auto 0.6 0.1-1.2 X10*3/uL Eos Abs Auto 0.3 0.0-0.4 X10*3/uL Baso Abs Auto 0.1 0.0-0.2 X10*3/uL NRBC Abs Auto 0.000 0.0-0.012 X10*3/uL SLIDE REVIEW VERIFIED Name: Francoise Burdick Age/Sex: 64/F : 1960 Unit#: [id number] Attend Dr: Alyssa Sullivan MD Re04/05/24 Status: DEP [facility] Disch: SPEC : [id number] ROSA: 04/05/24 STATUS: COMP REQ : [id number] RECD: 04/05/24-[address]: Alyssa Sullivan MD COMP: 04/05/24-1051 ENTERED: 04/05/[address]: ORDERED: AST, ALT, Lipid Panel, Vitamin D 25-OH Test Result Flag Reference AST (GOT) 32 H 5-31 U/L ALT (GPT) 35 H 0-31 U/L Triglyceride 284 H <150 mg/dL Desirable Triglyceride: less than 150 mg/dL Borderline High Triglyceride 150-199 mg/dL High Triglyceride: 200-499 mg/dL Very High Triglyceride: greater than or equal to 5OO mg/dL Cholesterol 305 H <200 mg/dL Desirable Cholesterol: less than 200 mg/dL Borderline High Cholesterol: 200-239 mg/dL High Cholesterol: greater than 239 mg/dL LDL Calculated 198 H <100 mg/dL Desirable LDL: less than 100 mg/dL Near Optimal/Above Optimal LDL: 110-129 mg/dL Borderline High LDL: 130-159 mg/dL High LDL: 160-189 mg/dL Very High LDL: greater than or equal to 190 mg/dL HDL 51 >40 mg/dL Desirable HDL: greater than 40 mg/dL Note: This HDL assay may give artificially low results in patients with liver disease. Vit D 25-OH Tot 127.3 >30 ng/mL Health Based Reference Values* < 20 ng/mL Deficient 20-30 ng/mL Insufficient > 30 ng/mL Sufficient Coding Level of Care Code Est Pt Level 4 (56917) Diagnoses Thrombocytosis D75.839 H/O splenectomy Z90.81 Refused influenza vaccine Z28.21 Refused pneumococcal vaccination Z28.21 Mixed dyslipidemia E78.2 Additional Codes MARTY-7 Assessment Billing - MARTY-7 Assessment Tool: MARTY-7 Assessment 62864 ([id number]) PHQ-9 - 57086 - PHQ-9 Billing: Yes ([id number]) Assessment & Plan Assessment & Plan (1) Thrombocytosis: Code(s): D75.839 - Thrombocytosis, unspecified Category: Medical Plan: Patient status post splenectomy, referred to hematology for further evaluation (2) 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 in [facility] Code(s): Z90.81 - Acquired absence of spleen Category: Surgical Plan: Recommended to get vaccinated against pneumococcal, flu and COVID infection, but patient refusing (3) Refused influenza vaccine: Code(s): Z28.21 - Immunization not carried out because of patient refusal Category: Medical Plan: Refuses flu vaccine, despite knowing the risks of not being vaccinated (4) Refused pneumococcal vaccination: Code(s): Z28.21 - Immunization not carried out because of patient refusal Category: Medical Plan: Refused offer of getting pneumonia vaccine, despite knowing the risks of not getting 1 especially now that she does not have a spleen (5) Mixed dyslipidemia: Code(s): E78.2 - Mixed hyperlipidemia Category: Medical Plan: , has been taking her rosuvastatin 5 mg once a day, and also takes niacin 250 mg daily which she gets [id number]. Advised to go higher on her dose of rosuvastatin to 10 mg but patient refusing wanting to try to see if she can decrease her in levels through diet and exercise and taking the same dose of medication. Repeat another fasting lipid panel in 07/2024 Orders: Orders Lipid Panel 07/01/24 E78.2 - Mixed hyperlipidemia Vitamin D 25-OH Total 07/01/24 E78.2 - Mixed hyperlipidemia, Z28.21 - Immunization not carried out because of patient refusal, Z90.81 - Acquired absence of spleen Liver Panel 07/01/24 E78.2 - Mixed hyperlipidemia, Z28.21 - Immunization not carried out because of patient refusal, Z90.81 - Acquired absence of spleen Referrals Hematology & Oncology Referral D75.839 - Thrombocytosis, unspecified Medications: Refilled rosuvastatin 5 mg PO DAILY 90 tabs 1RF
[2024-04-13 13:38] VITALS: BP 136/70; PULSE 90; O2SAT 95; BMI 31.0
== END 2024-04-13 14:30 | disposition home or self-care (01) ==
PROVIDERS: PCP Internal Medicine; Visit Provider Internal Medicine
DX: D75.839 Thrombocytosis, unspecified (principal); Z90.81 Acquired absence of spleen; Z28.21 Immunization not carried out because of patient refusal; E78.2 Mixed hyperlipidemia

== ENCOUNTER → 2024-04-13 13:28 | Outpatient (BNVA) | payer OTHER, SELFPAY | PROVIDERS: PCP Internal Medicine; Visit Provider Internal Medicine | DX: D75.839 Thrombocytosis, unspecified (principal); E78.2 Mixed hyperlipidemia; Z79.899 Other long term (current) drug therapy; Z90.81 Acquired absence of spleen; Z28.21 Immunization not carried out because of patient refusal | CPT/HCPCS: 96127 ==

== ENCOUNTER 2024-07-07 06:56 | Outpatient (REF) | payer OTHER, SELFPAY ==
--- OUTSIDE RECORDS SUMMARY | 2024-07-07 06:58 | XMS_ITS | Clinical Summary ---
Author Organization [facility] Address [address] [place] [address] Care Team Providers Care Cable Placer Name Role Phone Unavailable Primary Care Provider Unavailabl e Social History Tobacco Use Types Packs/Day Years Used Date Smoking Tobacco: Never Assessed Sex and Gender Information Value Date Recorded Sex Assigned at Not on file Gender Identity Not on file Sexual Orientation Not on file Plan of Treatment Health Maintenance Due Date Last Done Comments Hepatitis C Virus Screening 1960 HIV Screening 1974 DTaP/Tdap/Td Vaccines (1 - Tdap) 01/21/1980 Pneumococcal Vaccines 50+ (1 of 1 - PCV) 2011 Zoster (Shingles) Vaccine (1 of 2) 2011 COVID-19 Vaccine ( - 2023-2 5 season) 2024 RSV Vaccine 60 years and old er and Patients (1 - 1-dose 75+ series) 01/21/2036 Hepatitis B Vaccines Aged Out No long er eligible based on patient's age to complete this topic Pneumococcal Vaccine: Pediat alexandr (0-5 Years) and At-Risk Patients (6 to 49 Years) Aged Out No longer eligible b ased on patient's age to complete this topic
--- OUTSIDE RECORDS SUMMARY | 2024-07-07 06:58 | XMS_ITS | Clinical Summary ---
Author Organization [facility] Address [address] [id number] Care Team Providers Care Digital Art Director Name Role Phone Obinna Sierra MD Primary Care Provider Unavailab le Allergies No known active allergies Medications Medication Sig Dispensed Refills Start Date End Date Status atorvastatin (LIPITOR) tablet 20 mg Take 20 mg by mouth daily. 0 Active Oyster Shell Calcium/Vitamin D (OYSCO D) 250-125 MG-UNIT TABS per tablet Take 1 tablet by mouth daily. 0 Active Biotin 10 MG CAPS Take by mouth. 0 Act silva vitamin E 100 UNIT capsule Take 100 Units by mouth daily. 0 Active beta carotene 15 MG capsule Take 15 mg by mouth daily. 0 Active Active Problems No known active problems Social History Tobacco Use Types Packs/Day Years Used Date Smoking Tobacco: Never Smokeless Tobacco: Never Alcohol Use Standard Drinks/Week Comments No 0 (1 standard drink = 0.6 oz pur e alcohol) Sex and Gender Information Value Date Recorded Sex Assigned at Not on file Gender Identity Not on file Sexual Orientation Not on file Last Filed Vital Signs Vital Sign Reading Time Taken Comments Blood Pressure 150/77 04/14/2018 3:59 PM EST Pulse 83 04/14/2018 3:59 PM EST Temperature 36.8 ??C (98.2 ??F) 04/14/2018 3:59 PM ES T Respiratory Rate - - Oxygen Saturation - - Inhaled Oxygen Concentration - - Weight 72.1 kg (159 lb) 04/14/2018 3:59 PM EST Height 154.9 cm (5' 1 ) 04/14/2018 3:59 PM EST Body Mass Index 30.04 04/14/2018 3:59 PM EST Plan of Treatment Health Maintenance Due Date Last Done Comments Hepatitis C Screening 1960 COVID-19 Vaccine (#1) 1960 Depression Screening 1973 Preventative Health Evaluation 1979 DTap / Tdap / Td (1 - Tdap) 01/21/1980 Cervical Cancer Screening (P ap Smear) 1982 Colon Cancer Screening (Colonoscopy) 2006 Breast Cancer Screening (Mammogram) 2011 Shingrix-Zoster Vaccine (1 of 2) 2011 Influenza Vaccine (#1) 2024 RSV Adult > 60+ Yrs or Pregn ant (1 - 1-dose 75+ series) 01/21/2036 Hepatitis B Vaccines Aged Out No long er eligible based on patient's age to complete this topic Pneumococcal Vaccine Aged Out No long er eligible based on patient's age to complete this topic RSV Ped < 20 months Aged Out No longe r eligible based on patient's age to complete this topic Care Teams Digital Art Director Relationship Specialty Start Date End Date Obinna Sierra MD PCP - General Internal Medicine 07/21/18
--- OUTSIDE RECORDS SUMMARY | 2024-07-07 06:58 | XMS_ITS | Clinical Summary ---
Author Organization [facility] Address [id number] [id number] Care Team Providers Care Transit Manager Name Role Phone Alyssa Sullivan MD Primary Care Provider Surgical History Surgery Date Site/Laterality Comments OTHER SURGICAL HISTORY PROCEDURE: HISTORICAL SPLENECTOMY Family History Medical History Relation Name Comments Hyperlipidemia Father Hypertension Father Diabetes Sister Relation Name Status Comments Father Sister Social History Tobacco Use Types Packs/Day Years Used Date Smoking Tobacco: Never Smokeless Tobacco: Never Alcohol Use Standard Drinks/Week Comments No 0 (1 standard drink = 0.6 oz pur e alcohol) Sex and Gender Information Value Date Recorded Sex Assigned at Not on file Gender Identity Not on file Sexual Orientation Not on file Obstetrics History Plan of Treatment Health Maintenance Due Date Last Done Comments DTaP,Tdap,and Td Vaccines (1 - Tdap) 01/21/1980 Cervical Cancer Screening: P ap Smear 1982 Zoster Vaccines (1 of 2) 2011 Breast Cancer Screening 01/11/2020 01/10/2018 COVID-19 Vaccine ( - 2023-2 5 season) 2024 Influenza Vaccine (#1) 2024 RSV Immunization Patients 60 + Years Old (1 - 1-dose 75+ series) 01/21/2036 HIB Vaccines Aged Out No longer eligi ble based on patient's age to complete this topic HPV Vaccines Aged Out No longer eligi ble based on patient's age to complete this topic Hepatitis A Vaccines Aged Out No long er eligible based on patient's age to complete this topic Hepatitis B Vaccines Aged Out No long er eligible based on patient's age to complete this topic IPV Vaccines Aged Out No longer eligi ble based on patient's age to complete this topic MMR Vaccines Aged Out No longer eligi ble based on patient's age to complete this topic Meningococcal ACWY Vaccine Aged Out N o longer eligible based on patient's age to complete this topic Pneumococcal Vaccine: Pediat rics (0 to 5 Years) and At-Risk Patients (6 to 64 Years) Aged Out No longer eligi ble based on patient's age to complete this topic RSV Immunization Patients Un skip 20 months Aged Out No longer eligible b ased on patient's age to complete this topic Varicella Vaccines Aged Out No longer eligible based on patient's age to complete this topic Procedures Procedure Name Priority Date/Time Associated Diagnosis Comments [facility] SCREENING DIGITAL Routine 01/10/2018 8:01 AM EDT Encounter for screening mammogram for malignant neoplasm of breast from Last 3 Months or Most Recently Relevant to Health Maintenance Results * [facility] SCREENING DIGITAL (01/10/2018 8:01 AM EDT) Anatomical Region Laterality Modality Mammography 01/06/2018 2:32 PM EDT Narrative 01/10/2018 8:01 AM EDT [facility] Diagnostic Imaging Department [address] [place] [address] Patient: ??ALKA,MISTY E ?/Age/Sex: 1960 - 57 - F Unit#: ??[id number] ? Location/Status: ??SPDIMAM/REG CLI ? Mnemonic/Ordering Site: ??DIGSC/SPMAM Ordering Physician: ??MARTÍN ANTON MD Julio Screening Digital - 01/08/18 - 0824 INDICATION: SCREENING COMPARISON: 12/07/2016, 12/04/2015, 10/13/2014, 06/24/2013 FINDINGS: CC and MLO views of the breasts were obtained, using full field digital mammography with 3D tomosynthesis views in the MLO projection. Computer aided detection with the FSLogix 7.2-H was employed. Previous benign right breast biopsy reported. The breasts contain heterogeneously dense tissues, which may lower sensitivity of mammography in this patient. There is a scar marker overlying the upper outer quadrant of the right breast. No suspicious masses, suspicious microcalcifications, or areas of architectural distortion are identified. ??Benign-appearing breast calcifications are present bilaterally. There are no secondary signs of breast malignancy. ??Compared to the prior exam, no adverse interval change. IMPRESSION: ??No specific mammographic evidence of breast malignancy. Lack of a mammographic finding in the presence of a clinically suspicious palpable abnormality does not preclude the possibility of malignancy or alter the indications for biopsy. BI-RADS ??- Category 2 - Benign finding 3342F, 7025F Annual screening mammography is recommended. Patient entered into a reminder system with a target date for the next mammogram. (G0202 / [id number]) , ??[id number] Dictating Physician: ??ELISEO MADRID MD Electronically Signed by: ??ELISEO MADRID MD Dic Date/Time: ??01/10/18 0756 Sign date/Time: ??01/10/18 0801 Procedure Note Eliseo Madrid MD - 05/19/2022 [facility] Diagnostic Imaging Department [address] [place], [place] [address] Patient: ALKAMISTY./Age/Sex: 1960 - 57 - F Unit#: [id number] Location/Status: SPDIMAM/REG CLI Mnemonic/Ordering Site: [facility] Ordering Physician: MARTÍN ANTON MD Julio Screening Digital - 01/08/18 - 823 INDICATION: SCREENING COMPARISON: 12/07/2016, 12/04/2015, 10/13/2014, 06/24/2013 FINDINGS: CC and MLO views of the breasts were obtained, using full field digital mammography with 3D tomosynthesis views in the MLO projection. Computeraided detection with the FSLogix 7.2-H was employed. Previous benign right breast biopsy reported. The breasts contain heterogeneously dense tissues, which may lowersensitivity of mammography in this patient. There is a scar marker overlying the upperouter quadrant of the right breast. No suspicious masses, suspicious microcalcifications, or areas ofarchitectural distortion are identified. Benign-appearing breast calcifications arepresent bilaterally. There are no secondary signs of breast malignancy. Comparedto the prior exam, no adverse interval change. IMPRESSION: No specific mammographic evidence of breast malignancy. Lack of a mammographic finding in the presence of a clinicallysuspicious palpable abnormality does not preclude the possibility of malignancy oralter the indications for biopsy. BI-RADS - Category 2 - Benign finding 3342F, 7025F Annual screening mammography is recommended. Patient entered into a reminder system with a target date for the next mammogram. G0205 / [id number]) , [id number] Dictating Physician: ELISEO MADRID MD Electronically Signed by: ELISEO MADRID MD Dic Date/Time: 01/10/18 0756 Sign date/Time: 01/10/18 0801 Martín Anton MD IMG BI PROCEDURES from Last 3 Months or Most Recently Relevant to Health Maintenance Care Teams Transit Manager Relationship Specialty Start Date End Date Alyssa Sullivan MD [address] [place] [address] PCP - General Internal Medicine 02/07/20
[2024-07-07 11:28] LABS: Alanine Aminotransferase 34 U/L (0-31); Albumin Level 4.1 g/dL (3.5-5.0); Alkaline Phosphatase 107 U/L (39-117); Aspartate Amino Transferase 31 U/L (5-31); Bilirubin Direct 0.2 mg/dL (0.0-0.5); Bilirubin Total 0.6 mg/dL (0.0-1.0); Cholesterol 257 mg/dL (<200); HDL Cholesterol 42 mg/dL (>40); LDL Cholesterol Calculated 176 mg/dL (<100); Total Protein 7.5 g/dL (6.5-8.0); Triglycerides 199 mg/dL (<150)
[2024-07-07 11:31] LABS: Vitamin D 25-OH Total 127.1 ng/mL (>30)
== END 2024-07-07 06:57 | disposition home or self-care (01) ==
LOC: HO.HMGCLDS 06:56
PROVIDERS: PCP Internal Medicine; Visit Provider Internal Medicine
DX: E78.2 Mixed hyperlipidemia (principal); Z28.21 Immunization not carried out because of patient refusal; Z90.81 Acquired absence of spleen
CPT/HCPCS: 36415; 80061; 80076; 82306

== ENCOUNTER 2024-07-13 09:37 | Outpatient (AMB) | payer OTHER, SELFPAY ==
--- NOTE | 2024-07-13 09:47 | A.OFFPC_ITS ---
Vital Signs 07/13/24 09:49 Height 5 ft 1 in Weight 164 lb BMI 31.0 BP 130/80 Blood Pressure Location Lt brachial Position Sitting Pulse 93 Pulse Source Pulse Oximeter Temp 98.1 F Temp Source Oral Pulse Oximetry (%) 97 Oxygen Delivery Method Room Air Intake Visit Reasons: 3m f/u lipids, fasting labs Intake Note: Pt is here today for her 3mo. f/u labs Allergies No Known Allergies Allergy (Verified 07/16/24 15:15) Medication List - Last Reconciled 07/13/24 by Alyssa Sullivan MD ashwagandha extract mg PO biotin 1 mg PO DAILY coenzyme Q10 (CoQ-10) 100 mg PO DAILY magnesium glycinate 200 mg PO niacin 250 mg PO DAILY vitamin D3-vitamin K2 125 mcg (5,000 unit)-100 mcg 2 caps PO QWEEK zinc acetate (Galzin) 50 mg PO DAILY Tobacco use date assessed: 07/13/24 Dental Screening Dental Screen Date: 07/13/24 Did you have a dental visit in the last 12 months?: Yes Did you have a dental problem in the last 6 months where you did not have access to dental care?: No Was dental information given to patient?: Patient has dentist HPI 3m f/u lipids, fasting labs HPI Details - The patient is a 64-year-old female wi th history of hyperlipidemia and hypervitaminosis D, here today for follow-up. - H currently taking only niacin but micah es it irregularly for treatment of hyperlipidemia. Previously was on rosuvastatin, but stopped taking it after she developed muscle pains. She is also taking [place] 3 fatty acids. Recent fasting labs showed improvement in her lipid levels but still not at goal - The patient's vitamin D level is signi ficantly high at 127 ng/mL due to weekly intake of 10,000 units, necessitating dosage adjustment. - The patient has been diagnosed with ga llstones, currently asymptomatic, and has had stable liver function. - Recent glucose level was noted to be i n the prediabetic range at 102 mg/dL [facility] Medical History (Updated 07/16/24 @ 15:32 by Alyssa Sullivan MD) Myalgia due to statin Thrombocytosis Mixed dyslipidemia Refused pneumococcal vaccination COVID-19 vaccination refused Refused influenza vaccine Nail deformity Hot flashes due to menopause Postmenopause Hx of idiopathic thrombocytopenic purpura Cyst of right breast with history of ectopic Normal colonoscopy Surgical History H/O splenectomy History of unilateral fallopian tube excision Family History Mother No problems noted. Brother Hyperlipemia Sister Diabetes Hyperlipemia Social History Housing: House Alcohol intake: never Patient Tobacco Use Status: Never used Tobacco e-Cigarette/Vaping Use: Never Used service: No Current occupational status: employed Cognitive needs: No Hearing needs: No Vision needs: Yes Questionnaire PHQ-9 Over the last 2 weeks, how often have you been bothered by any of the following problems? 1. Little interest or pleasure in doing things: not at all 2. Feeling down, depressed, or hopeless: not at all 3. Trouble falling or staying asleep, or sleeping too much: not at all 4. Feeling tired or having little energy: not at all 5. Poor appetite or overeating: not at all 6. Feeling bad about yourself - or that you are a failure or have let yourself or your family down: not at all 7. Trouble concentrating on things, such as reading the newspaper or watching television: not at all 8. Moving or speaking so slowly that other people could have noticed. Or the opposite - being so fidgety or restless that you have been moving around a lot more than usual: not at all 9. Thoughts that you would be better off or of hurting yourself in some way: not at all Total score: 0 Depression Screening Interpretation: Negative Depression Screening Done: Yes 19866 - PHQ-9 Billing: Yes Source: Developed by Drs. Blayne Pinto, Tara Mayorga, Tremayne Owen and colleagues, with an educational eleazar from [employer] Thrive Questionnaire Date Thrive assessed: 07/13/24 I am a: Patient What is your living situation today?: I have a steady place to live Within the past 12 months, did the food you bought not last and you didn't have the money to get more?: Sometimes True Within the past 12 months, did you worry whether your food would run out before you got money to buy more?: Sometimes True Do you have trouble paying for medicines?: No Do you have trouble getting transportation to medical appointments?: No Do you have trouble paying your heating and electricity bill?: No Do you have trouble taking care of your child, family member or friend?: No Do you have trouble with day-to-day activities such as bathing, preparing meals, shopping, managing finances, etc.?: No Are you currently unemployed and looking for a job?: No Are you interested in more education?: No Please select the resources that you would like help with: Utilities Currently or been in a relationship where the following occur: No concerns reported THRIVE Score: 2 AUDIT C Alcohol Use Questionnaire (AUDIT-C) 1. How often do you have a drink containing alcohol?: Never Total Score: 0 MARTY-7 AMB Questionnaire MARTY-7 Date MARTY - 7 assessed: 07/13/24 Feeling nervous, anxious, or on edge: 0 = Not at all Not being able to stop or control worryin = Not at all Worrying too much about different things: 0 = Not at all Trouble relaxin = Not at all Being so restless that it is hard to sit still: 0 = Not at all Becoming easily annoyed or irritable: 0 = Not at all Feeling afraid as if something awful might happen: 0 = Not at all Total MARTY-7 score (0-4 normal; 5-9 mild; 10-14 moderate; 15-21 severe): 0 Source: Developed by Drs. Blayne Pinto, Tara Mayorga, Tremayne Owen and colleagues, with an educational eleazar from [employer] MARTY-7 Assessment Billing MARTY-7 Assessment Tool: MARTY-7 Assessment 87077 Review of Systems Const Denies fatigue and Denies weakness Eyes Details: [facility] Denies change in vision Card Denies chest pain, Denies lightheadedness, Denies palpitations and Denies dyspnea Resp Denies chest congestion, Denies cough, Denies dyspnea and Denies wheezing GI Denies abdominal pain, Denies melena, Denies bloating, Denies change in bowel habits, Denies dyspepsia, Denies heartburn and Denies nausea Denies hematuria, Denies urinary frequency and Denies dysuria Musc Reports stiffness Skin/Breast Denies rash Neuro Denies weakness Endo Denies fatigue, Denies polydipsia, Denies polyuria and Denies palpitations Keith/Lymph Denies easy bleeding and Denies easy bruising Aller/Immun Denies seasonal rhinorrhea and Denies wheezing Physical exam (Primary Care) Vital Signs: Last Vital Signs Temp 98.1 F 07/13/24 09:49 Pulse 93 07/13/24 09:49 BP 130/80 07/13/24 09:49 Pulse Ox 97 07/13/24 09:49 Oxygen Delivery Method Room Air 07/13/24 09:49 BMI result Body Mass Index 31.0 Tobacco/Smoking Status: Tobacco use Status Tobacco use date assessed 07/13/24 07/13/24 09:53 Patient Tobacco Use Status Never used Tobacco 07/13/24 09:49 e-Cigarette/Vaping Use Never Used 07/13/24 09:49 PHQ-9: PHQ-9 Score PHQ-9: Total score 0 07/13/24 10:39 Depression Screening Interpretation: Negative Thrive Assessment: Date of Thrive Assessment Date Thrive assessed 07/13/24 07/13/24 09:53 Currently or been in a relationship where the following occur: No concerns reported Const Other: Alert oriented x3, no acute distress noted ambulatory normal gait Orientation/consciousness: patient oriented x3 HENMT Ears: external ears normal General nose exam: Normal external nose present Face and sinus: Yes face symmetric Mouth: moist mucous membranes Eyes General: appearance normal, both eyes and all related structures Neck Neck: Yes full ROM, Yes no lymphadenopathy and Yes supple Resp Effort & Inspection: normal respiratory effort and able to speak in complete sentences Auscultation: clear to auscultation bilaterally Cardio Rate: regular rate Rhythm: regular rhythm Heart sounds: S1 normal heart sound present and S2 normal heart sound present GI Palpation (GI): Soft to palpation, nontender and no guarding Auscultation: normal bowel sounds Neuro General: patient oriented x3, gait normal, moves all extremities and no focal motor deficits Extrem General: Yes full ROM and Yes no joint enlargement Left lower extremity: normal to inspection, full ROM and no joint enlargement Results Reviewed Results Reviewed: Name: Francoise Burdick Age/Sex: 64/F : 1960 Unit#: [id number] Attend Dr: Alyssa Sullivan MD Re07/07/24 Status: DEP REF Location: [facility] Disch: SPEC : [id number] ROSA: 07/07/24 STATUS: COMP REQ : [id number] RECD: 07/07/24-[address]: Alyssa Sullivan MD COMP: 07/07/24 ENTERED: 07/07/[address]: ORDERED: Liver Panel, Lipid Panel, Vitamin D 25-OH Test Result Flag Reference Total Bili 0.6 0.0-1.0 mg/dL Direct Bili 0.2 0.0-0.5 mg/dL AST (GOT) 31 5-31 U/L ALT (GPT) 34 H 0-31 U/L Protein, Total 7.5 6.5-8.0 g/dL Alb 4.1 3.5-5.0 g/dL Triglyceride 199 H <150 mg/dL Desirable Triglyceride: less than 150 mg/dL Borderline High Triglyceride 150-199 mg/dL High Triglyceride: 200-499 mg/dL Very High Triglyceride: greater than or equal to 5OO mg/dL Cholesterol 257 H <200 mg/dL Desirable Cholesterol: less than 200 mg/dL Borderline High Cholesterol: 200-239 mg/dL High Cholesterol: greater than 239 mg/dL LDL Calculated 176 H <100 mg/dL Desirable LDL: less than 100 mg/dL Near Optimal/Above Optimal LDL: 110-129 mg/dL Borderline High LDL: 130-159 mg/dL High LDL: 160-189 mg/dL Very High LDL: greater than or equal to 190 mg/dL HDL 42 >40 mg/dL Desirable HDL: greater than 40 mg/dL Note: This HDL assay may give artificially low results in patients with liver disease. Alk Phos 107 39-117 U/L Vit D 25-OH Tot 127.1 >30 ng/mL Health Based Reference Values* < 20 ng/mL Deficient 20-30 ng/mL Insufficient > 30 ng/mL Sufficient Coding Level of Care Code Est Pt Level 4 (77746) Complex EM visit Add On G2211 Diagnoses Mixed dyslipidemia E78.2 Refused influenza vaccine Z28.21 COVID-19 vaccination refused Z28.21 Refused pneumococcal vaccination Z28.21 Myalgia due to statin M79.10; T46.6X5A Additional Codes MARTY-7 Assessment Billing - MARTY-7 Assessment Tool: MARTY-7 Assessment 94203 ([id number]) PHQ-9 - 00846 - PHQ-9 Billing: Yes ([id number]) Assessment & Plan Assessment & Plan (1) Mixed dyslipidemia: Code(s): E78.2 - Mixed hyperlipidemia Category: Medical Plan: Reviewed recent fasting labs which showed improvement in her triglycerides and LDL cholesterol but still not within normal limits. Refusing to start trying a different statin, been taking niacin which he has been taking irregularly. Encouraged to take it regularly,continue taking [place] 3 fatty acid supplements in following a low-cholesterol diet in addition to exercising regularly. Will repeat another fasting lipid panel in 3 months together with liver enzymes. (2) Refused influenza vaccine: Code(s): Z28.21 - Immunization not carried out because of patient refusal Category: Medical Plan: History of splenectomy but does not want to get flu shot (3) COVID-19 vaccination refused: Code(s): Z28.21 - Immunization not carried out because of patient refusal Category: Medical Plan: Declines COVID booster (4) Refused pneumococcal vaccination: Code(s): Z28.21 - Immunization not carried out because of patient refusal Category: Medical Plan: Stressed importance of getting a pneumonia vaccine due to history of splenectomy but patient refusing aware of the risks of such a decision (5) Myalgia due to statin: Code(s): M79.10 - Myalgia, unspecified site; T46.6X5A - Adverse effect of antihyperlipidemic and antiarteriosclerotic drugs, initial encounter Category: Medical Plan: Declines to try taking another statin Orders: Orders Glucose Fasting 3 Months E78.2 - Mixed hyperlipidemia, Z28.21 - Immunization not carried out because of patient refusal, Z78.0 - Asymptomatic menopausal state Alanine Aminotransferase 3 Months E78.2 - Mixed hyperlipidemia, Z28.21 - Immunization not carried out because of patient refusal, Z78.0 - Asymptomatic menopausal state Hemoglobin A1c 3 Months E78.2 - Mixed hyperlipidemia, Z28.21 - Immunization not carried out because of patient refusal, Z78.0 - Asymptomatic menopausal state Lipid Panel 3 Months E78.2 - Mixed hyperlipidemia, Z28.21 - Immunization not carried out because of patient refusal, Z78.0 - Asymptomatic menopausal state Aspartate Amino Transferase 3 Months E78.2 - Mixed hyperlipidemia, Z28.21 - Immunization not carried out because of patient refusal, Z78.0 - Asymptomatic menopausal state Vitamin D 25-OH Total 3 Months E78.2 - Mixed hyperlipidemia, Z28.21 - Immunization not carried out because of patient refusal, Z78.0 - Asymptomatic menopausal state
[2024-07-13 09:49] VITALS: BP 130/80; PULSE 93; TEMP 36.7; O2SAT 97; BMI 31.0
--- OUTSIDE RECORDS SUMMARY | 2024-07-13 10:09 | XMS_ITS | Clinical Summary ---
Author Organization [facility] Address [address] [id number] Care Team Providers Care Supply Chain Assistant Name Role Phone Obinna Sierra MD Primary [...] age to complete this topic Care Teams Supply Chain Assistant Relationship Specialty Start Date End Date Obinna Sierra MD PCP - General Internal Medicine 07/21/18
--- OUTSIDE RECORDS SUMMARY | 2024-07-13 10:09 | XMS_ITS | Clinical Summary ---
Author Organization [facility] Address [address] [place] [address] Care Team Providers Care Distance Learning Unit Leader Name Role Phone Unavailable Primary Care Provider [...]
--- OUTSIDE RECORDS SUMMARY | 2024-07-13 10:09 | XMS_ITS | Clinical Summary ---
[facility] Organization [facility] Address [address] [place] [phone] Care Team Providers Care Computer Technology Instructor Name Role Phone Alyssa Sullivan MD Primary Care Provider [phone] Surgical History Surgery Date Site/Laterality Comments OTHER SURGICAL HISTORY PROCEDURE: HISTORICAL SPLENECTOMY Family History Medical History Relation Name Comments Hyperlipidemia Father Hypertension Father Diabetes Sister Relation Name Status Comments Father Sister Social History Tobacco Use Types Packs/Day Years Used Date Smoking Tobacco: Never Smokeless Tobacco: Never Alcohol Use Standard Drinks/Week Comments No 0 (1 standard drink = 0.6 oz pur e alcohol) Comments Unknown Sex and Gender Information Value Date Recorded Sex Assigned at Not on file Legal Sex Female 12:51 AM EST Gender Identity Not on file Sexual Orientation Not on file Obstetrics History Plan of Treatment Health Maintenance Due Date Last Done Comments DTaP,Tdap,and Td Vaccines (1 - Tdap) 01/21/1980 Cervical Cancer Screening: P ap Smear 1982 Pneumococcal Vaccine: 50+ Ye ars (1 of 1 - PCV) 2011 Zoster Vaccines (1 of 2) 2011 Breast [...] patient's age to complete this topic Meningococcal B Vacine Aged Out No lo nger eligible based on patient's age to complete [...] Procedure Name Priority Date/Time Associated Diagnosis Comments [facility] SCREENING DIGITAL Routine 01/10/2018 8:01 AM EDT Encounter for screening mammogram for malignant neoplasm of breast from Last 3 Months or Most Recently Relevant to Health Maintenance Results * [facility] SCREENING DIGITAL (01/10/2018 8:01 AM EDT) Anatomical Region Laterality Modality Mammography 01/06/2018 2:32 PM EDT Narrative 01/10/2018 8:01 AM EDT [facility] Diagnostic Imaging Department [address] [place] [address] Patient: ??ALKA,MISTY E ?/Age/Sex: 1960 - 57 - F Unit#: ??[id number] ? Location/Status: ??SPDIMAM/REG CLI ? Mnemonic/Ordering Site: ??DIGSC/SPMAM Ordering Physician: ??MARTÍN ANTON MD Julio Screening Digital - 01/08/18 - 0824 INDICATION: SCREENING COMPARISON: 12/07/2016, 12/04/2015, 10/13/2014, 06/24/2013 FINDINGS: CC and MLO views of the breasts were obtained, using full field digital mammography with 3D tomosynthesis views in the MLO projection. Computer aided detection with the [employer] was employed. Previous benign right breast biopsy [...] date for the next mammogram. (G0202 / [id number]) , ??[id number] Dictating Physician: ??ELISEO MADRID MD Electronically Signed by: ??ELISEO MADRID MD Dic Date/Time: ??01/10/18 0756 Sign date/Time: ??01/10/18 0801 Procedure Note Eliseo Madrid MD - 05/19/2022 [facility] Diagnostic Imaging Department [address] [place] [id number] Patient: MISTY RUCKER /Age/Sex: 1960 - 57 - F Unit#: [id number] Location/Status: SPDIMAM/REG CLI Mnemonic/Ordering Site: [facility]MA/[facility] Ordering Physician: MARTÍN ANTON MD Julio Screening Digital - 01/08/18 - 823 INDICATION: SCREENING COMPARISON: 12/07/2016, 12/04/2015, 10/13/2014, 06/24/2013 FINDINGS: CC and MLO views of the breasts were obtained, using full field digital mammography with 3D tomosynthesis views in the MLO projection. Computeraided detection with the [employer] 7.2-H was employed. Previous benign right breast [...] a target date for the next mammogram. [id number] / [id number]) , 01101 Dictating Physician: ELISEO MADRID MD Electronically Signed by: ELISEO MADRID MD Dic Date/Time: 01/10/18 0757 Sign date/Time: 01/10/18 0801 us Martín Anton MD IMG BI PROCEDURES Final Result from Last 3 Months or Most Recently Relevant to Health Maintenance Care Teams Computer Technology Instructor Relationship Specialty Start Date End Date Alyssa Sullivan MD [address] [place] [address] PCP - General Internal Medicine 02/07/20
== END 2024-07-13 10:43 | disposition home or self-care (01) ==
PROVIDERS: PCP Internal Medicine; Visit Provider Internal Medicine
DX: E78.2 Mixed hyperlipidemia (principal); Z28.21 Immunization not carried out because of patient refusal; M79.10 Myalgia, unspecified site; T46.6X5A Adverse effect of antihyperlipidemic and antiarteriosclerotic drugs, initial encounter

== ENCOUNTER → 2024-07-13 09:37 | Outpatient (BNVA) | payer OTHER, SELFPAY | PROVIDERS: PCP Internal Medicine; Visit Provider Internal Medicine | DX: E78.2 Mixed hyperlipidemia (principal); M79.10 Myalgia, unspecified site; T46.6X5A Adverse effect of antihyperlipidemic and antiarteriosclerotic drugs, initial encounter; Z28.21 Immunization not carried out because of patient refusal | CPT/HCPCS: 96127 ==

== ENCOUNTER 2024-09-29 06:52 | Outpatient (REF) | payer OTHER, SELFPAY ==
--- OUTSIDE RECORDS SUMMARY | 2024-09-29 06:56 | XMS_ITS | Clinical Summary ---
Author Organization [facility] Address [address] [place] [address] Care Team Providers Care Bar Catcher Name Role Phone Unavailable Primary Care Provider Unavailabl e Social History Tobacco Use Types Packs/Day Years Used Date Smoking Tobacco: Never Assessed Comments Unknown Sex and Gender Information Value Date Recorded Sex Assigned at Not on file Legal Sex Female 2:13 PM EDT Gender Identity Not on file Sexual Orientation [...]
--- OUTSIDE RECORDS SUMMARY | 2024-09-29 06:56 | XMS_ITS | Clinical Summary ---
[facility] Address [address] [id number] Care Team Providers Care Ear Muff Assembler Name Role Phone Obinna Sierra MD Primary [...] age to complete this topic Care Teams Ear Muff Assembler Relationship Specialty Start Date End Date Obinna Sierra MD PCP - General Internal Medicine 07/21/18
--- OUTSIDE RECORDS SUMMARY | 2024-09-29 06:56 | XMS_ITS | Clinical Summary ---
[facility] Organization [facility] Address [address] [place] [phone] Care Team Providers Care Billing Representative Name Role Phone Alyssa Sullivan MD Primary [...] - 2023-2 5 season) 2024 Influenza Vaccine (Season Ended) 2025 RSV Immunization Adult Patie nts (1 - 1-dose 75+ series) 01/21/2036 HIB [...] age to complete this topic Meningococcal B Vaccine Aged Out No l onger eligible based on patient's age to complete [...] Procedure Name Priority Date/Time Associated Diagnosis Comments [facility] SCREENING DIGITAL Routine 01/10/2018 8:01 AM EDT Encounter for screening mammogram for malignant neoplasm of breast from Last 3 Months or Most Recently Relevant to Health Maintenance Results * [facility] SCREENING DIGITAL (01/10/2018 8:01 AM EDT) Anatomical Region Laterality Modality Mammography 01/06/2018 2:32 PM EDT Narrative 01/10/2018 8:01 AM EDT [facility] Diagnostic Imaging Department [address] [place], [place] [id number] Patient: ??ALKA,MISTY E ?/Age/Sex: 1960 - 57 - F Unit#: ??[id number] ? Location/Status: ??SPDIMAM/REG CLI ? Mnemonic/Ordering Site: ??DIGSC/SPMAM Ordering Physician: ??MARTÍN ANTON MD Julio Screening Digital - 01/08/18 - 0824 INDICATION: SCREENING COMPARISON: 12/07/2016, 12/04/2015, 10/13/2014, 06/24/2013 FINDINGS: CC and MLO views of the breasts were obtained, using full field digital mammography with 3D tomosynthesis views in the MLO projection. Computer aided detection with the [employer] 7.2-H was employed. Previous benign right breast [...] date for the next mammogram. (G0202 / [id number]) , ??[id number] Dictating Physician: ??ELISEO MADRID MD Electronically Signed by: ??ELISEO MADRID MD Dic Date/Time: ??01/10/18 0756 Sign date/Time: ??01/10/18 0801 Procedure Note Eliseo Madrid MD - 05/19/2022 [facility] Diagnostic Imaging Department [address] [place], [place] [id number] Patient: MISTY RUCKER /Age/Sex: 1960 - 57 - F Unit#: [id number] Location/Status: SPDIMAM/REG CLI Mnemonic/Ordering Site: [facility] Ordering Physician: MARTÍN ANTON MD Julio Screening Digital - 01/08/18 - 823 INDICATION: SCREENING COMPARISON: 12/07/2016, 12/04/2015, 10/13/2014, 06/24/2013 FINDINGS: CC and MLO views of the breasts were obtained, using full field digital mammography with 3D tomosynthesis views in the MLO projection. Computeraided detection with the [employer] 7.2-H was employed. Previous benign right breast [...] a target date for the next mammogram. ([id number] / [id number]) , [id number] Dictating Physician: ELISEO MADRID MD Electronically Signed by: ELISEO MADRID MD Dic Date/Time: 01/10/18 0757 Sign date/Time: 01/10/18 0824 Martín Anton MD IMG BI PROCEDURES Final Result from Last 3 Months or Most Recently Relevant to Health Maintenance Care Teams Billing Representative Relationship Specialty Start Date End Date Alyssa Sullivan MD [address] [place] [address] PCP - General Internal Medicine 02/07/20
--- OUTSIDE RECORDS SUMMARY | 2024-09-29 06:56 | XMS_ITS ---
[facility] Name [facility] Unknown Encounters Encounter Type Encounter Reason Primary Diagnosis Location Date Ambulatory [facility] [place] 09/18/2024
[2024-09-29 10:28] LABS: Estimated Average Glucose 114 mg/dL; Hemoglobin A1C 136.8633 umol/L; Hemoglobin A1c % 5.6 % (<6.0); Total Hemoglobin (HGBA1C) 3596.3713 umol/L
[2024-09-29 10:42] LABS: Alanine Aminotransferase 21 U/L (0-31); Aspartate Amino Transferase 23 U/L (5-31); Cholesterol 279 mg/dL (<200); Glucose Fasting 93 mg/dL (60-99); HDL Cholesterol 49 mg/dL (>40); LDL Cholesterol Calculated 187 mg/dL (<100); Triglycerides 219 mg/dL (<150)
[2024-09-29 10:50] LABS: Vitamin D 25-OH Total 80.1 ng/mL (>30)
== END 2024-09-29 06:53 | disposition home or self-care (01) ==
LOC: HO.HMGCLDS 06:52
PROVIDERS: PCP Internal Medicine; Visit Provider Internal Medicine
DX: Z28.21 Immunization not carried out because of patient refusal (principal); Z78.0 Asymptomatic menopausal state; E78.2 Mixed hyperlipidemia; Z13.1 Encounter for screening for diabetes mellitus
CPT/HCPCS: 36415; 80061; 82306; 82947; 83036; 84450; 84460

== ENCOUNTER 2024-10-09 09:42 | Outpatient (AMB) | payer OTHER, SELFPAY ==
--- NOTE | 2024-10-09 09:58 | A.OFFPC_ITS ---
Vital Signs 10/09/24 10:00 Height 5 ft 1 in Weight 165 lb BMI 31.2 BP 140/82 H Blood Pressure Location Lt brachial Position Sitting Respiration 16 Pulse 87 Pulse Source Pulse Oximeter Temp 98.1 F Temp Source Oral Pulse Oximetry (%) 96 Oxygen Delivery Method Room Air Intake Visit Reasons: 3m follow up Intake Note: Pt is here today for her 3mo. f/u Allergies No Known Allergies Allergy (Verified 10/09/24 10:28) Medication List - Last Reconciled 10/09/24 by Alyssa Sullivan MD astaxanthin mg PO coenzyme Q10 (CoQ-10) 100 mg PO DAILY magnesium glycinate 400 mg PO vitamin B complex 1 tab PO DAILY vitamin D3-vitamin K2 125 mcg (5,000 unit)-100 mcg 2 caps PO QWEEK zinc acetate (Galzin) 50 mg PO DAILY Tobacco use date assessed: 10/09/24 Dental Screening Dental Screen Date: 10/09/24 Did you have a dental visit in the last 12 months?: Yes Did you have a dental problem in the last 6 months where you did not have access to dental care?: No Was dental information given to patient?: Patient has dentist HPI 3m follow up HPI Details 64-year-old lady here today for follow-u p on her lipids. She has mixed dyslipidemia currently not taking any statin due to previous side effects of myalgia on rosuvastatin atorvastatin. Admits to not exercising regularly but has been compliant with the low-cholesterol diet. Latest fasting labs showed triglycerides PFSH Medical History Myalgia due to statin Thrombocytosis Mixed dyslipidemia Refused pneumococcal vaccination COVID-19 vaccination refused Refused influenza vaccine Nail deformity Hot flashes due to menopause Postmenopause Hx of idiopathic thrombocytopenic purpura Cyst of right breast with history of ectopic Normal colonoscopy Surgical History H/O splenectomy History of unilateral fallopian tube excision Family History Mother No problems noted. Brother Hyperlipemia Sister Diabetes Hyperlipemia Social History Housing: House Alcohol intake: never Patient Tobacco Use Status: Never used Tobacco e-Cigarette/Vaping Use: Never Used service: No Current occupational status: employed Cognitive needs: No Hearing needs: No Vision needs: Yes Questionnaire PHQ-9 Over the last 2 weeks, how often have you been bothered by any of the following problems? Depression Screening Interpretation: Negative Depression Screening Done: Yes Source: Developed by Drs. Blayne Pinto, Tara Mayorga, Tremayne Owen and colleagues, with an educational eleazar from [employer] Thrive Questionnaire Date Thrive assessed: 07/13/24 I am a: Patient What is your living situation today?: I have a steady place to live Within the past 12 months, did the food you bought not last and you didn't have the money to get more?: Sometimes True Within the past 12 months, did you worry whether your food would run out before you got money to buy more?: Sometimes True Do you have trouble paying for medicines?: No Do you have trouble getting transportation to medical appointments?: No Do you have trouble paying your heating and electricity bill?: No Do you have trouble taking care of your child, family member or friend?: No Do you have trouble with day-to-day activities such as bathing, preparing meals, shopping, managing finances, etc.?: No Are you currently unemployed and looking for a job?: No Are you interested in more education?: No Please select the resources that you would like help with: Utilities Currently or been in a relationship where the following occur: No concerns reported THRIVE Score: 2 MARTY-7 AMB Questionnaire MARTY-7 Date MARTY - 7 assessed: 07/13/24 Source: Developed by Drs. Blayne Pinto, Tara Mayorga, Tremayne Owen and colleagues, with an educational eleazar from [employer] Review of Systems Const Denies fatigue and Denies weakness Eyes Details: [facility] Denies change in vision Card Denies chest pain, Denies lightheadedness, Denies palpitations and Denies dyspnea Resp Denies chest congestion, Denies cough, Denies dyspnea and Denies wheezing GI Denies abdominal pain, Denies melena, Denies bloating, Denies change in bowel habits, Denies dyspepsia, Denies heartburn and Denies nausea Denies hematuria, Denies urinary frequency and Denies dysuria Musc Reports stiffness Skin/Breast Denies rash Neuro Denies weakness Endo Denies fatigue, Denies polydipsia, Denies polyuria and Denies palpitations Keith/Lymph Denies easy bleeding and Denies easy bruising Aller/Immun Denies seasonal rhinorrhea and Denies wheezing Physical exam (Primary Care) Vital Signs: Last Vital Signs Temp 98.1 F 10/09/24 10:00 Pulse 87 10/09/24 10:00 Resp 16 10/09/24 10:00 BP 140/82 H 10/09/24 10:00 Pulse Ox 96 10/09/24 10:00 Oxygen Delivery Method Room Air 10/09/24 10:00 BMI result Body Mass Index 31.2 Tobacco/Smoking Status: Tobacco use Status Tobacco use date assessed 10/09/24 10/09/24 09:59 Patient Tobacco Use Status Never used Tobacco 10/09/24 09:59 e-Cigarette/Vaping Use Never Used 10/09/24 09:59 Depression Screening Interpretation: Negative Thrive Assessment: Date of Thrive Assessment Date Thrive assessed 07/13/24 10/09/24 09:59 Currently or been in a relationship where the following occur: No concerns reported Const Other: Alert oriented x3, no acute distress noted ambulatory normal gait Orientation/consciousness: patient oriented x3 HENMT Ears: external ears normal General nose exam: Normal external nose present Face and sinus: Yes face symmetric Mouth: moist mucous membranes Eyes General: appearance normal, both eyes and all related structures Neck Neck: Yes full ROM, Yes no lymphadenopathy and Yes supple Resp Effort & Inspection: normal respiratory effort and able to speak in complete sentences Auscultation: clear to auscultation bilaterally Cardio Rate: regular rate Rhythm: regular rhythm Heart sounds: S1 normal heart sound present and S2 normal heart sound present GI Palpation (GI): Soft to palpation, nontender and no guarding Auscultation: normal bowel sounds Skin General skin exam: no rashes or lesions noted Neuro General: patient oriented x3, gait normal, moves all extremities and no focal motor deficits Extrem General: Yes full ROM and Yes no joint enlargement Left lower extremity: normal to inspection, full ROM and no joint enlargement Results Reviewed Results Reviewed: Name: Francoise Burdick Age/Sex: 64/F : 1960 Unit#: [id number] Attend Dr: Alyssa Sullivan MD Re09/29/24 Status: DEP REF Location: [facility] Disch: SPEC : [id number] ROSA: 09/29/24 STATUS: COMP REQ : [id number] RECD: 09/29/[address]: Alyssa Sullivan MD COMP: 09/29/24 ENTERED: 09/29/[address]: ORDERED: Glu Fasting, AST, ALT, Lipid Panel, Vitamin D 25-OH Test Result Flag Reference FBS 93 60-99 mg/dL AST (GOT) 23 5-31 U/L ALT (GPT) 21 0-31 U/L Triglyceride 219 H <150 mg/dL Desirable Triglyceride: less than 150 mg/dL Borderline High Triglyceride 150-199 mg/dL High Triglyceride: 200-499 mg/dL Very High Triglyceride: greater than or equal to 5OO mg/dL Cholesterol 279 H <200 mg/dL Desirable Cholesterol: less than 200 mg/dL Borderline High Cholesterol: 200-239 mg/dL High Cholesterol: greater than 239 mg/dL LDL Calculated 187 H <100 mg/dL Desirable LDL: less than 100 mg/dL Near Optimal/Above Optimal LDL: 110-129 mg/dL Borderline High LDL: 130-159 mg/dL High LDL: 160-189 mg/dL Very High LDL: greater than or equal to 190 mg/dL HDL 49 >40 mg/dL Desirable HDL: greater than 40 mg/dL Note: This HDL assay may give artificially low results in patients with liver disease. Vitamin D 25-OH 80.1 >30 ng/mL Health Based Reference Values* < 20 ng/mL Deficient 20-30 ng/mL Insufficient > 30 ng/mL Sufficient Coding Level of Care Code Est Pt Level 4 (52803) Complex EM visit Add On G2211 Diagnoses Mixed dyslipidemia E78.2 Myalgia due to statin M79.10; T46.6X5A H/O splenectomy Z90.81 Assessment & Plan Assessment & Plan (1) Mixed dyslipidemia: Code(s): E78.2 - Mixed hyperlipidemia Category: Medical Plan: Patient declined starting any statins due to side effect of myalgia. Referred to [facility] for dietary guidance. Will repeat another fasting lipid panel in January 2025, to do prior to next visit with me (2) Myalgia due to statin: Code(s): M79.10 - Myalgia, unspecified site; T46.6X5A - Adverse effect of antihyperlipidemic and antiarteriosclerotic drugs, initial encounter Category: Medical Plan: Declines starting any statin at present time requesting for her to be given time to lower her cholesterol levels through diet and exercise. Will repeat another fasting lipid panel (3) 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 in [facility] Code(s): Z90.81 - Acquired absence of spleen Category: Surgical Plan: Discussed importance of getting a pneumonia vaccination as she has history of splenectomy, but patient declined
[2024-10-09 10:00] VITALS: BP 140/82; PULSE 87; RESP 16; TEMP 36.7; O2SAT 96; BMI 31.2
--- OUTSIDE RECORDS SUMMARY | 2024-10-09 10:07 | XMS_ITS | Clinical Summary ---
[facility] Organization [facility] Address [address] [place] [phone] Care Team Providers Care Loan Associate Name Role Phone Alyssa Sullivan MD Primary Care Provider [phone] Surgical History Surgery Date Site/Laterality Comments OTHER [...] Procedure Name Priority Date/Time Associated Diagnosis Comments [facility] SCREENING DIGITAL Routine 01/10/2018 8:01 AM EDT Encounter for screening mammogram for malignant neoplasm of breast from Last 3 Months or Most Recently Relevant to Health Maintenance Results * [facility] SCREENING DIGITAL (01/10/2018 8:01 AM EDT) Anatomical Region Laterality Modality Mammography 01/06/2018 2:32 PM EDT Narrative 01/10/2018 8:01 AM EDT [facility] Diagnostic Imaging Department [address] [place], [place] [address] Patient: ??ALKA,MISTY E ?/Age/Sex: 1960 - 57 - F Unit#: ??[id number] ? Location/Status: ??SPDIMAM/REG CLI ? Mnemonic/Ordering Site: ??DIGSC/SPMAM Ordering Physician: ??MARTÍN ANTON MD Julio Screening Digital - 01/08/18 - 0824 INDICATION: SCREENING COMPARISON: 12/07/2016, 12/04/2015, 10/13/2014, 06/24/2013 FINDINGS: CC and MLO views of the breasts were obtained, using full field digital mammography with 3D tomosynthesis views in the MLO projection. Computer aided detection with the [employer]-H was employed. Previous benign right breast [...] date for the next mammogram. (G0202 / [id number]) , ??[id number] Dictating Physician: ??ELISEO MADRID MD Electronically Signed by: ??ELISEO MADRID MD Dic Date/Time: ??01/10/18 0756 Sign date/Time: ??01/10/18 0801 Procedure Note Eliseo Madrid MD - 05/19/2022 [facility] Diagnostic Imaging Department [address] [place], [place] [address] Patient: MISTY RUCKER /Age/Sex: 1960 - 57 - F Unit#: [id number] Location/Status: SPDIMAM/REG CLI Mnemonic/Ordering Site: [facility] Ordering Physician: MARTÍN ANTON MD Julio Screening Digital - 01/08/18 - 823 INDICATION: SCREENING COMPARISON: 12/07/2016, 12/04/2015, 10/13/2014, 06/24/2013 FINDINGS: CC and MLO views of the breasts were obtained, using full field digital mammography with 3D tomosynthesis views in the MLO projection. Computeraided detection with the [employer] 7.2-H was employed. Previous benign right breast [...] a target date for the next mammogram. (G7171 / [id number]) , [id number] Dictating Physician: ELISEO MADRID MD Electronically Signed by: ELISEO MADRID MD Dic Date/Time: 01/10/18 0755 Sign date/Time: 01/10/18 0891 Martín Anton MD IMG BI PROCEDURES Final Result from Last 3 Months or Most Recently Relevant to Health Maintenance Care Teams Loan Associate Relationship Specialty Start Date End Date Alyssa Sullivan MD [address] [place] [address] PCP - General Internal Medicine 02/07/20
--- OUTSIDE RECORDS SUMMARY | 2024-10-09 10:07 | XMS_ITS | Clinical Summary ---
[facility] Organization [facility] Address [address] [id number] Care Team Providers Care Electroplater Name Role Phone Obinna Sierra MD Primary [...] age to complete this topic Care Teams Electroplater Relationship Specialty Start Date End Date Obinna Sierra MD PCP - General Internal Medicine 07/21/18
--- OUTSIDE RECORDS SUMMARY | 2024-10-09 10:07 | XMS_ITS | Clinical Summary ---
Author Organization [facility] Address [address] [place] [address] Care Team Providers Care Gas Worker Name Role Phone Unavailable Primary Care Provider [...]
--- OUTSIDE RECORDS SUMMARY | 2024-10-09 10:08 | XMS_ITS | Data Portability ---
Author Organization [place] [facility] [place] Address [address] [place] [address] Care Team Providers Care Data Software Engineer Name Role Phone MICHELLE MAGANA Primary Care Provider MICHELLE MAGANA Referring Provider [phone] Assessment Encounter Date Assessment Date Assessment LastModified by Organization Details LastModified Time 10/04/2024 10/04/2024 ? ? ?We reviewed her x-rays and discussed her diagnosis of left-sided plantar fasciitis. We discussed nonoperative management including eccentric calf stretching which was demonstrated for the patient today, to be performed at least 5 times a day for 30 seconds at a time, anti-inflammator ies, either oral or topical such as Voltaren gel, rolling on a frozen water bottle, extending the toes to the MTP joints and plantar fascial massage, avoiding walking barefoot, and appropriate cushioning of the heel either and well cushioned sneakers or by adding gel heel cups. She would like to begin formal treatment with boot immobilization. We also discussed a gel heel cup for inside the boot if needed. She can continue with her home stretches and soaking modalities. Follow-up in 3 weeks for repeat assessment with plans to begin physical therapy at that time. She was given a work note to work in the boot full duty. Patient was prescribed a short cam boot for above diagnosis. The patient is ambulatory but has weakness and/or instability which requires stabilization from this semi-rigid / rigid orthosis to improve their function. Patient was seen and evaluated by Kate Gallegos PA-C in indirect conjunction with Documenting Provider: Jerica Fontana MD He/She agrees with history, physical examination, tests/diagnostic imaging, and treatment plan [email or web address] Not available 10/04/2024 11:35:56 Plan of Treatment Reminders Order Date Submit Date Provider Last Modified By Organization Details Last Modified Time Details Appointments FOLLOW UP 2024 04:15P M Kate Gallegos PA-C Not available Not available Not available Lab None recorded . Referral None recorded . Procedures None recorded . Surgeries None recorded . Imaging XR, foot, 3 or more view 2024 025 [facility], [address], [address], [place], [address], 10/04/2024 11:23:31 Medication Orders None recorded . Patient TargetsNo targets recorded. Patient Instructions Encounter Date Encounter Id Patient Instructions Last Modified By Organization Details Last Modified Time 10/04/2024 [id number] X-rays of the left foot were obtained on 10/04/2024 which is negative for acute fracture. There is an osteophyte at the Achilles insertion. Not available 10/04/2024 11:06:47 Reason for Referral None Reported. Problems Name Problem SNOMED Code Status Onset Date Resolution Date Notes Provider Name and Address Organization Details Recorded Time Plantar fasciitis of left foot [id number] 101 Active 2024 KATE GALLEGOS PA-C [address], [place], [address] , [place] [facility], 11:06:52 Problem Notes None recorded. Medical Equipment None Reported. Allergies No known drug allergies Medications Name Sig Start Date Stop Date Status Note LastModified by Organization Details LastModified Time rosuvastatin 5 mg tablet 5 MG ORALLY DAILY active Not Available Not Available No t Available Vitals None Recorded Social History None recorded. Functional Status Question Answer Note LastModified by Organization D etails LastModified Time Do you or have you ever used any other forms of tobacco or nicotine? No Information not available 10/04/2024 What is your level of alcohol consumption? None Information not available 10/04/2024 Mental Status None recorded. Family History Nothing Reported. Medical History Condition Response Coronary Artery Disease N Gout N Hyperthyroidism N MRSA N Blood Transfusion N Emphysema N Hypothyroidism N COPD N Depression N Pacemaker N Vascular Disease N Gastrointestinal Disease N Anxiety Disorder N Autoimmune disease N Arthritis N Cancer N Stroke N High Cholesterol N Neurologic Disorder N Liver Disease N Organ Transplant N Arrhythmia N Rheumatoid Arthritis N Fibromyalgia N Kidney Disease N Allergies/Hayfever N Adverse Reaction to Anesthesia N Thyroid Problems N Anemia N Brain Injury N Heart Attack ([place]) N Osteopenia N Diabetes N Bleeding Disorder N Seizures/Epilepsy N AIDS/HIV N Congestive Heart Failure (CHF) N Asthma N Amputation N Reflux/GERD N Sleep Apnea N Hepatitis N Aneurysm N Heart Disease N Pulmonary Embolism N Hypertension N Osteoporosis N Gynecological HistoryNo gynecological history recorded. Obstetrics History GPAL:G 0 P 0 0 0 0 Past Encounters Encounter ID Performer Location Encounter Start Date Encounter Closed Date Diagnosis/Indication Diagnosis SNOMED-CT Code Diagnosis ICD10 Code Diagnosis Note [id number] KATE GALLEGOS PA-C [address] [address] 10/04/2024 10:29:09 10/04/2024 11:23:31 Pain in left foot [id number] 85988 M79.672 Plantar fa sciitis of left foot [id number] M72.2 Health Concerns Section Related Observation LastModified by Organization Detai ls LastModified Time None Recorded Concern Status LastModified by Organization Details LastModified Time None Recorded Advance Directives Directive None Recorded Payers Encounter Date Sequence Insurance Name Policy Number Policy Garcia Covered Member ID Garcia Member ID Guarantor Name 10/04/2024 1 [employer] - CHOICE (POS II) [id number] Francoise Burdick [id number] Francoise Burdick Notes Date Note Type Note Provider Name and Address Organization Details Recorded Time 10/04/2024 text/html Francoise hung is a 64-year-old female who presents for new patient evaluation regarding her left heel pain. This began approximately 2 months ago with no known injury. Her pain is present with all times of ambulation and worsens first thing in the morning.She was able to look up some stretches which she has been performing. She also is cutting up the pit of an avocado and soaking it in alcohol and then soaking her foot in the solution which she finds helpful. She is also using essential oils and taking turmeric. No past medical history. 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 She is a non-smoker. KATE GALLEGOS PA-C [address], [place], [address], [place] [facility], P 10/04/2024 11:36:08 OBGyn Episode No OBEpisode recorded.
== END 2024-10-09 10:58 | disposition home or self-care (01) ==
LOC: HO.HMCC 09:48
PROVIDERS: PCP Internal Medicine; Visit Provider Internal Medicine
DX: E78.2 Mixed hyperlipidemia (principal); M79.10 Myalgia, unspecified site; T46.6X5A Adverse effect of antihyperlipidemic and antiarteriosclerotic drugs, initial encounter; Z90.81 Acquired absence of spleen

== ENCOUNTER → 2024-10-09 09:42 | Outpatient (BNVA) | payer OTHER, SELFPAY | PROVIDERS: PCP Internal Medicine; Visit Provider Internal Medicine | DX: Z13.89 Encounter for screening for other disorder (principal) ==